=== PATIENT | female | born 2000 | race Caucasian/White ===

== ENCOUNTER 2022-06-18 11:44 | Emergency (ER) | payer BC, MEDICAID, SELFPAY ==
--- NOTE | 2022-06-18 12:08 | XR_ITS ---
WS: [id number] Left ankle, 3 views, 06/18/2022 Clinical Data: fall with ankle pain Comparison: None. Findings: No fractures or dislocations are seen. The ankle mortise is normal. The talus and calcaneus are unrem arkable. No soft tissue swelling over the medial or lateral malleolus is seen. XR/XR ankle LT min 3V* [id number] Impression: Negative left ankle.
[2022-06-18 12:09] VITALS: BMI 26.2
[2022-06-18 12:13] VITALS: BP 101/60; PULSE 70; RESP 18; TEMP 36.7; O2SAT 95
--- NOTE | 2022-06-18 12:18 | XR_ITS ---
WS: [id number] Left foot, 3 views, 06/18/2022 Clinical Data: left foot and ankle pain Comparison: None. Findings: No fractures or dislocations are seen. No bone destruction or erosion is noted. The joint spaces and soft tissues are normal. XR/XR foot LT 2V [id number] Impression: Negative left foot.
--- NOTE | 2022-06-18 14:32 | ED_ITS ---
HPI - Extremity Problem General: Chief complaint: Extremity Injury, Lower Stated complaint: Fall, left ankle pain. 15 weeks Time Seen by Provider: 06/18/22 14:08 History of Present Illness: Patient is a 21-year-old female that is currently 15 weeks who comes to the ED with left ankle and foot pain after fall. Patient states that she rolled her left ankle and fell approximately 8 days ago back on June 10. Denies any abdominal trauma, vaginal bleeding, abdominal pain or any related concerns. Her only complaint is left ankle and left foot pain. Pain worsens with some weightbearing. Associated symptoms: Deny chest pain, fever(s) or rash Review of Systems Const: Denies: fever(s), chills or fatigue Eyes: Denies: change in vision or eye discomfort ENMT: Denies: throat pain, odynophagia, nasal discharge or nasal congestion Card: Denies: chest pain, palpitations, edema, swelling of feet/ankles, dyspnea on exertion or orthopnea Resp: Denies: dyspnea, productive cough or non-productive cough GI: Denies: abdominal pain, nausea, vomiting, diarrhea, constipation or hematochezia : Denies: flank pain, dysuria, hematuria, vaginal bleeding or vaginal discharge Musc: Reports: extremity pain (Left ankle and left foot); Denies: neck pain, back pain or extremity swelling Skin/Breast: Denies: rash or new lesions Neuro: Denies: headache(s), numbness in extremities or weakness in extremities PFS ED PFSH: Medical History No pertinent family history Psychiatric care Surgical History No pertinent past surgical history Female Reproductive History: Date of last menstrual period: 03/01/22 Physical Exam Const: COMMON NORMALS: no acute distress, patient oriented x3 and alert GENERAL APPEARANCE: cooperative HENMT: COMMON NORMALS: normocephalic HEAD & SCALP: normocephalic MOUTH: Normal oral and palatal mucosa present THROAT: posterior oropharynx normal and uvula midline Neck/C-Spine: COMMON NORMALS: supple GENERAL: Yes normal visual inspection Resp: COMMON NORMALS: normal respiratory effort, No retractions, No use of accessory muscles and clear to auscultation bilaterally AUSCULTATION: clear to auscultation bilaterally Cardio: COMMON NORMALS: regular rate, regular rhythm, S1 normal heart sound present, S2 normal heart sound present, No gallops present (Cardio), No clicks present (Cardio), No murmurs present (Cardio) and Peripheral pulses 2+ throughout RATE: regular rate RHYTHM: regular rhythm HEART SOUNDS: S1 normal heart sound present and S2 normal heart sound present PERIPHERAL PULSES: Peripheral pulses 2+ throughout GI: COMMON NORMALS: Normal to inspection, nondistended, normoactive bowel sounds present, Soft to palpation, non-tender and no masses PALPATION: Yes Soft to palpation : COMMON NORMALS: Yes no CVA tenderness BLADDER/KIDNEY EXAM: Yes no CVA tenderness Back/Pelvis: COMMON NORMALS: no CVA tenderness Extremity: COMMON NORMALS: normal to inspection and full ROM NARRATIVE EXTREMITY EXAM: Patient's left ankle and foot is unremarkable on exam. No swelling or ecchymosis noted. Full range of motion. Able to ambulate without any limp. Neuro: COMMON NORMALS: patient oriented x3 SENSORIUM/ORIENTATION: Yes alert GAIT: Yes Normal gait present Skin: GENERAL SKIN EXAM: dry skin Course ED course: Nurse performed Doppler heart tone check and picked up heart rate of 145 bpm. Vital Signs: Vital signs: Vital Signs Temperature 98.1 F 06/18/22 12:13 Pulse Rate 70 06/18/22 12:13 Respiratory Rate 18 06/18/22 12:13 Blood Pressure 101/60 06/18/22 12:13 Pulse Oximetry 95 06/18/22 12:13 Oxygen Delivery Me thod 06/18/22 12:13 MDM - Extremity (Nontraumatic) Medical Decision Making Patient is a currently 15 weeks 21-year-old female comes to the ED with left ankle and left foot pain after fall 8 days ago. Denies any abdominal t rauma, vaginal bleeding or discharge or any concerns about . Exam of patient is benign and her left ankle and foot appears completely normal upon exam. She has full range of motion and able to ambulate on leg without any limping nurse performed Doppler heart tone check and picked up heart rate of 145 bpm. Left ankle and left foot x-ray showed no acute findings. Patient diagnosed with a sprain strain of ankle and was stable for discharge home. Told to rest, ice and elevate left ankle and to take [id number] Tylenol for pain. Follow-up with PCP within the next week for reevaluation. Patient understood and agreed with plan Lab Data Radiology Impressions Ankle X-Ray 06/18/22 12:08 Impression: Negative left ankle. Foot X-Ray 06/18/22 12:18 Impression: Negative left foot. Discharge Plan Discharge Patient Disposition: Home Clinical Impression: Sprain and strain of ankle Condition: Stable Discharge Orders: Discharge ED (Routine); Ordered 06/18/22 Ordered By: Ibrahima Davis Referrals: Mel Agustin DO [Primary Care Provider] - Discharge Diet: Regular Discharge Activity: Increase activity as tolerated Patient Instructions: Ankle Sprain (DC) Activity Restrictions/Additional Instructions: Follow-up with medical provider as directed in the next 5 to 7 days reevaluation. Rest, ice and elevate left ankle. Take [id number] Tylenol for pain. Return to the ER or your medical provider if condition worsens. Please read and understand discharge instructions. Thank you for choosing [facility] for your healthcare needs today. Please realize this is an emergency room and that we are providing you with a medical screening exam and this may not be complete and all inclusive of all the testing and or work up that you may need to determine your ailment or severity of your illness. It is very important that you follow up as instructed or that you return to the Emergency Department should you have concerns or if your condition changes or worsens in any way. Coding Level of Care Code ED Leather Repairer for Dana Horner Exam Comprehensive
== END 2022-06-18 14:54 | disposition home or self-care (01) ==
PROVIDERS: Emergency Provider Physician Assistant; PCP Family Medicine
DX: O99.891 Other specified diseases and conditions complicating pregnancy (principal); S93.402A Sprain of unspecified ligament of left ankle, initial encounter; S96.912A Strain of unspecified muscle and tendon at ankle and foot level, left foot, initial encounter; W19.XXXA Unspecified fall, initial encounter; Z3A.15 15 weeks gestation of pregnancy
CPT/HCPCS: 73610; 73620; 99283

== ENCOUNTER 2022-07-07 09:40 | Emergency (ER) | payer BC, MEDICAID, SELFPAY ==
[2022-07-07 10:02] VITALS: BP 114/72; PULSE 87; RESP 16; TEMP 36.6; O2SAT 98; BMI 26.2
--- NOTE | 2022-07-07 11:02 | W.ED.GENADLT ---
HPI - General Adult General: Chief complaint: General Medical Stated complaint: 18 wks, fetus not moving Time Seen by Provider: 07/07/22 11:02 History of Present Illness: Mr. Parsons is a 22-year-old lady currently approximately 18 weeks presenting to the emergency department due to decreased movements and abdominal cramping with vaginal discharge. She reports being on bedrest for the first trimester and was at work yesterday when she was told to lift and was more active. She has had near constant abdominal cramping worse in the suprapubic area. Additionally this morning she noticed increased watery vaginal discharge with pink tinge. She also notes decreased movements. Intensity symptoms is moderate. Course has persisted. No other specific changes in health, exacerbating, or alleviating factors identified. Onset (ago): day(s) Location: abdomen Radiation: non-radiation Severity: moderate Quality: other (cramping) Exacerbating factors: movement Associated symptoms: Reports other Review of Systems General: Reports: 10 or more systems reviewed and unremarkable except in HPI and below PFSH ED PFSH: Medical History No pertinent family history Psychiatric care Surgical History No pertinent past surgical history Female Reproductive History: Date of last menstrual period: 03/01/22 Physical Exam Const: COMMON NORMALS: alert GENERAL APPEARANCE: cooperative and well developed HENMT: COMMON NORMALS: normocephalic and atraumatic HEAD & SCALP: normocephalic and atraumatic Eye: COMMON NORMALS: conjunctivae normal CONJUNCTIVA: Yes conjunctivae normal SCLERA: sclerae normal Neck/C-Spine: COMMON NORMALS: supple GENERAL: Yes trachea midline Resp: COMMON NORMALS: normal respiratory effort EFFORT & INSPECTION: Yes able to speak in complete sentences Cardio: COMMON NORMALS: regular rate and regular rhythm RATE: regular rate RHYTHM: regular rhythm GI: COMMON NORMALS: Soft to palpation PALPATION: Yes Soft to palpation and Yes Tenderness to palpation present (GI) (mild lower) : OTHER: Pelvic exam performed with database programmer analyst present. Normal external exam. Mild to moderate amount of white discharge without other abnormality in the vaginal vault. Cervix appears closed. Bimanual exam with minimally worse tenderness on the right. Extremity: GENERAL: Yes normal exam except as noted and No edema Neuro: COMMON NORMALS: moves all extremities SENSORIUM/ORIENTATION: Yes alert and No Orientation impaired Psych: COMMON NORMALS: mental status grossly normal and Normal thought process present THOUGHT PROCESS: Normal thought process present Course Vital Signs: Vital signs: Vital Signs Temperature 97.8 F 07/07/22 10:02 Pulse Rate 87 07/07/22 10:02 Respiratory Rate 16 07/07/22 10:02 Blood Pressure 114/72 07/07/22 10:02 Pulse Oximetry 98 07/07/22 10:02 Oxygen Delivery Me thod 07/07/22 10:02 [facility] - General Adult Medical Decision Making 22-year-old female presenting with concern in the context of multiple prior SABs. Patient is nontoxic in appearance without significant abdominal tenderness. Urinalysis negative for infection. Wet prep negative. Given provided clinical history as well as symptoms and current gestational age I believe that ultrasound is reasonable. Ultrasound demonstrates single IUP with closed cervix, normal heart rate, anterior placenta location. Patient is improved after IV fluids. Most likely cause of patient symptoms is unclear, related concern. The results of ED evaluation were discussed with the patient including prescriptions and/or symptomatic cares (if applicable) including appropriate and responsible use, followup plan, and return precautions. The patient verbalized understanding and felt safe for discharge. Medical Records I reviewed the patient's medical records. Lab Data I reviewed the patient's lab results. Radiology Impressions Obstetrics Ultrasound 07/07/22 11:51 IMPRESSION: 1. Single interuterine gestation with breech presentation. 2. Closed cervix. 3. Examination within normal limits. Laboratory Results Urine Color Yellow (Yellow) 07/07/22 11:05 Urine Appearance Clear (CLEAR) 07/07/22 11:05 Urine pH 8 (5-7) H 07/07/22 11:05 Ur Specific Mcdowell 1.015 (1.005-1.030) 07/07/22 11:05 Urine Protein Neg (Negative) 07/07/22 11:05 Urine Glucose (UA) Norm (Normal) 07/07/22 11:05 Urine Ketones Negative (Negative) 07/07/22 11:05 Urine Blood Neg (Negative) 07/07/22 11:05 Urine Nitrate Negative (Negative) 07/07/22 11:05 Urine Bilirubin Neg (Negative) 07/07/22 11:05 Urine Urobilinogen Norm mg/dL (Negative) 07/07/22 11:05 Ur Leukocyte Esterase Negative (Negative) 07/07/22 11:05 Blood Type B Positive 07/07/22 12:15 Rho(D) Type Positive 07/07/22 12:15 Discharge Plan Discharge Patient Disposition: Home Clinical Impression: Abdominal cramping affecting , Vaginal discharge during Condition: Stable Prescriptions: No Action 28 mg iron- 800 mcg Tablet 1 tab PO DAILY Discharge Orders: Discharge ED (Routine); Ordered 07/07/22 Ordered By: Anshu Olsen Referrals: Mel Agustin DO [Primary Care Provider] - Discharge Diet: Usual diet Discharge Activity: Increase activity as tolerated Patient Instructions: Abdominal Pain in (ED), Vaginal Discharge (ED) Activity Restrictions/Additional Instructions: Thank you for visiting the emergency department. You were seen and evaluated for cramping and vaginal discharge during . The exact cause of her symptoms is unclear. No evidence of infection was found and ultrasound was normal at this time. Please follow-up with your director of oncology. Return to the emergency department for anything new that you are concerned about a feel needs emergency department evaluation. Stand Alone Forms: Work/School Release Coding Level of Care Code ED Dial Painter for Chg Fwd Exam Comprehensive
--- NOTE | 2022-07-07 11:14 | PC.NURSE ---
FHT 146
[2022-07-07 11:20] LABS: Add Urine Microscopic? NO; Charge for UA Resulting for Rev
[2022-07-07 11:24] LABS: Urine Appearance Clear (CLEAR); Urine Color Yellow (Yellow); pH Urine 8 (5-7)
[2022-07-07 11:25] LABS: Bilirubin Urine Neg (Negative); Blood Urine Neg (Negative); Glucose Urine UA Norm (Normal); Ketones Urine Negative (Negative); Leukocyte Esterase Urine Negative (Negative); Nitrate Urine Negative (Negative); Protein Urine Neg (Negative); Specific Gravity, Urine 1.015 (1.005-1.030); Urobilinogen Urine Norm (Negative)
--- NOTE | 2022-07-07 11:51 | US_ITS ---
WS: [id number] ULTRASOUND OB LIMITED TECHNIQUE: Limited ultrasound examination of the fetus. 0 CLINICAL INFORMATION: approx 18 wks preg, decreased movements, hx SABs x5 COMPARISON: July 30, 2021 FINDINGS: Closed cervix measures 3.5 cm Single interuterine gestation. presentation is breech Placental location is anterior. Placenta grade: 0. heart rate 147 BPM. Anatomy: BPD: 4.0 cm = 18 weeks 2 days HC: 15.4 cm = 18 weeks 3 days AC: 12.2 cm = 17 weeks 6 days FEMUR LENGTH: 2.7 cm = 18 weeks 2 days Estimated weight: 225 g., EGA by ultrasound: 18 weeks 2 days ZONIA by ultrasound: December 06, 2022 US/US OB limited [id number] IMPRESSION: 1. Single interuterine gestation with breech presentation. 2. Closed cervix. 3. Examination within normal limits.
[2022-07-07] MEDS: sodium chloride 0.9% 1,000 ML 999 ML IV (12:22)
== END 2022-07-07 14:50 | disposition home or self-care (01) ==
PROVIDERS: Physician Assistant; Emergency Provider Emergency Medicine; PCP Family Medicine
DX: O26.892 Other specified pregnancy related conditions, second trimester (principal); R10.9 Unspecified abdominal pain; N89.8 Other specified noninflammatory disorders of vagina; Z3A.18 18 weeks gestation of pregnancy
CPT/HCPCS: 36415; 76815; 81003; 86900; 87210; 87491; 87591; 96360; 96361; 99285; J7030

== ENCOUNTER 2022-07-25 14:20 | Outpatient (CLI) | payer BC, MEDICAID, SELFPAY ==
--- NOTE | 2022-07-25 14:32 | US_ITS ---
WS: [id number] OB ultrasound, 07/25/2022 Clinical Data: unable to obtain heart tones in office. Comparison: OB ultrasound, 07/22/2020 Findings: There is a single intrauterine in the vertex presentation. The placenta is Anterior and gra de 0. There is a normal amount of amnionic fluid. The heart rate is 138 beats per minute. The c ervix is 4.18 cm and closed. The estimated gestational age is 20 weeks 6 days with an ZONIA of approximately 12/06/2022. US/ OB limited [id number] Impression: 1. Single intrauterine in vertex presentation. 2. Estimated gestational age 20 weeks 6 days with an ZONIA of 12/06/2022. 3. heart rate 138 beats per minute.
[2022-07-25 14:40] VITALS: BP 109/71; PULSE 105
--- NOTE | 2022-07-25 14:50 | PC.NURSE ---
Ultrasound completed by the tech at this time. movement was visualized, placenta noted to be anterior, and FHT noted to be 138. Pt was reassured at this time and Shahida Gunn RN explained that sometimes with an anterior placenta it can be more difficult to feel the movements and find the heart tones with a Doppler, pt verbalized understanding.
== END 2022-07-25 14:55 | disposition home or self-care (01) ==
LOC: OPOB 14:26 → OBGYN 14:30
PROVIDERS: PCP Family Medicine; Visit Provider Family Medicine
DX: O26.892 Other specified pregnancy related conditions, second trimester (principal); Z3A.20 20 weeks gestation of pregnancy
CPT/HCPCS: 76815; 99211

== ENCOUNTER 2022-09-03 09:49 | Outpatient (CLI) | payer BC, MEDICAID, SELFPAY ==
[2022-09-03 10:07] VITALS: RESP 18
[2022-09-03 10:13] VITALS: BP 119/64; PULSE 95
[2022-09-03 10:31] VITALS: BP 118/64; PULSE 85
[2022-09-03 10:51] VITALS: BMI 30.7
== END 2022-09-03 10:50 | disposition home or self-care (01) ==
LOC: OPOB 09:57 → OBGYN 09:58
PROVIDERS: PCP Family Medicine; Visit Provider Family Medicine
DX: O36.8190 Decreased fetal movements, unspecified trimester, not applicable or unspecified (principal)
CPT/HCPCS: 99211

== ENCOUNTER 2022-09-17 20:52 | Outpatient (CLI) | payer BC, MEDICAID, SELFPAY ==
[2022-09-17] VITALS (9 sets, daily range): BP systolic 87–124; BP diastolic 56–67; PULSE 75–92; RESP 15; BMI 30.2
[2022-09-17 21:36] LABS: Basophils % 0.2 %; Eosinophils # 0.3 10^3/uL (0.0-0.8); Eosinophils % 2.1 %; Hematocrit 32.2 % (37.0-47.0); Hemoglobin 10.6 g/dL (11.5-15.3); Lymphocytes # 2.1 10^3/uL (0.8-4.8); Lymphocytes % 16.1 %; Mean Corpuscular HGB Conc 32.9 g/dL (30.0-36.0); Mean Corpuscular Hemoglobin 29.5 pg (28.0-34.0); Mean Corpuscular Volume 89.7 fl (81-99); Mean Platelet Volume 9.1 fL (7.4-10.4); Monocytes # 0.7 10^3/uL (0.2-0.9); Monocytes % 5.4 %; Neutrophils # 9.89 10^3/uL (1.8-7.7); Nucleated Red Blood Cells % 0 %; Platelet Count 242 10^3/cmm (130-400); Red Blood Count 3.59 10^6/uL (4.1-5.3); Red Cell Distribution Width 11.9 % (12.1-15.1); White Blood Count 13.2 10^3/uL (4.0-10.0)
[2022-09-17] MEDS: lactated ringers 1,000 ML 999 ML IV (21:43)
[2022-09-17 21:57] LABS: Alanine Aminotransferase < 5 U/L (0-33); Albumin Level 3.4 g/dL (3.5-5.2); Alkaline Phosphatase 85 U/L (35-105); Anion Gap 14.6 (5-19); Aspartate Amino Transferase 10 U/L (0-32); Blood Urea Nitrogen 6 mg/dL (6-20); Calcium 8.6 mg/dL (8.5-10.5); Carbon Dioxide 21 mmol/L (22-29); Chloride 103 mmol/L (98-107); Globulin 2.4 g/dL (1.3-4.6); Glomerular Filtration Rate 152.9 mL/min (90-130); Glucose 116 mg/dL (65-115); Osmolality Calculated 279 mOsm/kg (285-295); Potassium 3.6 mmol/L (3.5-5.1); Sodium 135 mmol/L (136-145); Total Bilirubin 0.2 mg/dL (0.15-1.2); Total Protein 5.8 g/dL (6.6-8.7); Uric Acid 3.1 mg/dL (2.4-5.7)
[2022-09-17 22:30] LABS: Urine Creatinine 106 mg/dL (28-217); Urine Protein Random 7 mg/dL
[2022-09-17 22:45] LABS: UPRO/UCREAT Ratio 0.07 mg/mg CR
[2022-09-17 22:49] LABS: Add Urine Culture? No; Add Urine Microscopic? YES; Amorphous Sediment Urine 2+ /hpf; Bacteria Urine 1+ /hpf; Bilirubin Urine Neg (Negative); Blood Urine Neg (Negative); Glucose Urine UA Norm (Normal); Ketones Urine Negative (Negative); Leukocyte Esterase Urine 2+ (Negative); Nitrate Urine Negative (Negative); Protein Urine Neg (Negative); RBC Urine 0-4 /hpf (0-2); Specific Gravity, Urine 1.015 (1.005-1.030); Squamous Epithelial Cell Urine TOO NUMEROUS TO CNT /hpf (0-5); Urine Appearance SL Hazy (CLEAR); Urine Color Yellow (Yellow); Urobilinogen Urine Norm (Negative); pH Urine 7 (5-7)
== END 2022-09-17 23:10 | disposition home or self-care (01) ==
LOC: OPOB 20:53 → OBGYN 20:53
PROVIDERS: PCP Family Medicine; Visit Provider Family Medicine
DX: O26.899 Other specified pregnancy related conditions, unspecified trimester (principal); Z3A.00 Weeks of gestation of pregnancy not specified; R51.9 Headache, unspecified; R60.0 Localized edema; R42 Dizziness and giddiness
CPT/HCPCS: 36415; 59025; 80053; 81001; 82570; 84156; 84550; 85025; 99211; J7120

== ENCOUNTER 2022-09-21 22:43 | Outpatient (CLI) | payer BC, MEDICAID, SELFPAY ==
[2022-09-21 22:46] VITALS: BMI 30.2
[2022-09-21 22:56] VITALS: BP 134/71; PULSE 110
[2022-09-21 23:23] VITALS: RESP 16; TEMP 36.6
[2022-09-22 00:33] VITALS: BP 120/59; PULSE 84
[2022-09-22 00:35] VITALS: BP 120/59; PULSE 84; RESP 16; TEMP 36.6
== END 2022-09-22 00:40 | disposition home or self-care (01) ==
LOC: OPOB 22:44 → OBGYN 09-22 00:30
PROVIDERS: PCP Family Medicine; Visit Provider Family Medicine
DX: O26.899 Other specified pregnancy related conditions, unspecified trimester (principal); Z3A.00 Weeks of gestation of pregnancy not specified; N89.8 Other specified noninflammatory disorders of vagina
CPT/HCPCS: 59025; 83986; 87210; 99211

== ENCOUNTER 2022-09-25 15:40 | Outpatient (CLI) | payer BC, MEDICAID, SELFPAY ==
[2022-09-25 15:40] VITALS: RESP 18; TEMP 36.6; BMI 30.6
[2022-09-25 15:49] VITALS: BP 109/66; PULSE 112
[2022-09-25 16:08] VITALS: BP 96/58; PULSE 100
== END 2022-09-25 16:30 | disposition home or self-care (01) ==
LOC: OPOB 15:41 → OBGYN 15:42
PROVIDERS: PCP Family Medicine; Visit Provider Family Medicine
DX: O26.899 Other specified pregnancy related conditions, unspecified trimester (principal); Z3A.00 Weeks of gestation of pregnancy not specified; M54.9 Dorsalgia, unspecified; R10.9 Unspecified abdominal pain
CPT/HCPCS: 99211

== ENCOUNTER 2022-10-01 16:10 | Outpatient (CLI) | payer BC, SELFPAY ==
[2022-09-25 16:21] VITALS: RESP 18
[2022-10-01 16:26] VITALS: BP 110/65; PULSE 93
[2022-10-01 16:30] VITALS: RESP 16
[2022-10-01 16:31] VITALS: BMI 30.7
[2022-10-01 16:41] VITALS: BP 117/61; PULSE 98
[2022-10-01 16:56] VITALS: BP 119/61; PULSE 93
[2022-10-01 17:07] LABS: Actim Prom Negative
[2022-10-01 17:11] VITALS: BP 119/73; PULSE 94
[2022-10-01 17:11] LABS: Bilirubin Urine Neg (Negative); Blood Urine Neg (Negative); Glucose Urine UA Norm (Normal); Ketones Urine Negative (Negative); Leukocyte Esterase Urine Negative (Negative); Nitrate Urine Negative (Negative); Protein Urine Neg (Negative); Specific Gravity, Urine 1.015 (1.005-1.030); Squamous Epithelial Cell Urine 25-40 /hpf (0-5); Sulfosalicylic Acid Urine Negative (Negative); Urine Appearance Cloudy (CLEAR); Urine Color Yellow (Yellow); Urobilinogen Urine Neg (Negative); pH Urine 8 (5-7)
[2022-10-01 17:12] LABS: Add Urine Culture? No
== END 2022-10-01 17:30 | disposition home or self-care (01) ==
LOC: OPOB 16:16 → OBGYN 16:16
PROVIDERS: PCP Family Medicine; Visit Provider Family Medicine
DX: O26.899 Other specified pregnancy related conditions, unspecified trimester (principal); Z3A.00 Weeks of gestation of pregnancy not specified; N89.8 Other specified noninflammatory disorders of vagina; R10.9 Unspecified abdominal pain
CPT/HCPCS: 59025; 81001; 84112; 99211

== ENCOUNTER 2022-10-09 09:48 | Outpatient (CLI) | payer BC, SELFPAY ==
[2022-10-09 09:56] VITALS: BP 128/65; PULSE 94
[2022-10-09 10:12] VITALS: BMI 31.2
--- NOTE | 2022-10-09 10:31 | US_ITS ---
WS: [id number] BIOPHYSICAL PROFILE AMNIOTIC FLUID HISTORY: NO MOVEMENT COMPARISON: 07/25/2022 position: Cephalic Cardiac activity: 138 bpm. Cervix: closed. Placenta: Anterior, no previa or abruption. Placenta grade: 1 Parameters are as follows: Breathin Movement: 2 Tone: 2 Fluid volume: 2 Amniotic Fluid Index: 15.5 cm; single deep vertical pocket 4.7 cm. US/US OB BPP wo NST [id number] IMPRESSION: 1. Biophysical profile score: 8/8. 2. Normal cardiac activity. 3. Normal amniotic fluid.
[2022-10-09 11:04] VITALS: BP 111/57; PULSE 88
[2022-10-09 11:07] LABS: Alanine Aminotransferase < 5 U/L (0-33); Albumin Level 3.1 g/dL (3.5-5.2); Alkaline Phosphatase 107 U/L (35-105); Anion Gap 12.7 (5-19); Aspartate Amino Transferase 11 U/L (0-32); Blood Urea Nitrogen 4 mg/dL (6-20); Calcium 8.7 mg/dL (8.5-10.5); Carbon Dioxide 23 mmol/L (22-29); Chloride 103 mmol/L (98-107); Globulin 2.9 g/dL (1.3-4.6); Glomerular Filtration Rate 152.9 mL/min (90-130); Glucose 134 mg/dL (65-115); Osmolality Calculated 279 mOsm/kg (285-295); Potassium 3.7 mmol/L (3.5-5.1); Sodium 135 mmol/L (136-145); Total Bilirubin 0.2 mg/dL (0.15-1.2)
[2022-10-09 11:30] VITALS: BP 106/51; PULSE 83
[2022-10-09 11:35] VITALS: BP 111/59; PULSE 94
[2022-10-09 11:49] VITALS: BP 105/63; PULSE 90
[2022-10-09 12:04] VITALS: BP 105/63; PULSE 90
[2022-10-14 19:34] LABS: Chenodeoxycholic Acid 0.6 umol/L (< OR = 3.9); Cholic Acid 0.9 umol/L (< OR = 2.8); Deoxycholic Acid <0.5 umol/L (< OR = 2.3); Total Bile Acids <1.5 umol/L (< OR = 8.3)
== END 2022-10-09 12:00 | disposition home or self-care (01) ==
LOC: OPOB 09:48 → OBGYN 09:49
PROVIDERS: PCP Family Medicine; Visit Provider Family Medicine
DX: O36.8190 Decreased fetal movements, unspecified trimester, not applicable or unspecified (principal); Z3A.00 Weeks of gestation of pregnancy not specified
CPT/HCPCS: 36415; 59025; 76819; 80053; 82542; 99211

== ENCOUNTER 2022-10-17 08:46 | Outpatient (CLI) | payer BC, SELFPAY ==
[2022-10-17 08:51] VITALS: BMI 31.4
[2022-10-17 08:57] VITALS: BP 131/69; PULSE 101
[2022-10-17 09:13] VITALS: BP 124/68; PULSE 94
[2022-10-17 09:20] LABS: Nitrazine Paper, PH Negative
== END 2022-10-17 09:20 | disposition home or self-care (01) ==
LOC: OPOB 08:47 → OBGYN 08:47
PROVIDERS: Family Medicine; PCP Family Medicine; Visit Provider Family Medicine
DX: O26.899 Other specified pregnancy related conditions, unspecified trimester (principal); N89.8 Other specified noninflammatory disorders of vagina; Z3A.00 Weeks of gestation of pregnancy not specified
CPT/HCPCS: 59025; 83986; 99211

== ENCOUNTER 2022-10-24 13:29 | Outpatient (CLI) | payer BC, SELFPAY ==
[2022-10-24] VITALS (8 sets, daily range): BP systolic 90–127; BP diastolic 54–76; PULSE 101–127; TEMP 36.2
== END 2022-10-24 15:33 | disposition home or self-care (01) ==
LOC: OPOB 13:29 → OBGYN 13:30
PROVIDERS: PCP Family Medicine; Visit Provider Family Medicine
DX: O26.899 Other specified pregnancy related conditions, unspecified trimester (principal); Z3A.00 Weeks of gestation of pregnancy not specified; Z91.81 History of falling
CPT/HCPCS: 59025; 99211

== ENCOUNTER 2022-10-27 12:19 | Outpatient (CLI) | payer BC, SELFPAY ==
[2022-10-27] VITALS (12 sets, daily range): BP systolic 90–127; BP diastolic 51–69; PULSE 80–110; TEMP 36.1; BMI 32.8
[2022-10-27 14:05] LABS: Basophils % 0.2 %; Eosinophils # 0.2 10^3/uL (0.0-0.8); Eosinophils % 1.6 %; Hematocrit 35.7 % (37.0-47.0); Hemoglobin 11.8 g/dL (11.5-15.3); Lymphocytes # 1.6 10^3/uL (0.8-4.8); Lymphocytes % 12.8 %; Mean Corpuscular HGB Conc 33.1 g/dL (30.0-36.0); Mean Corpuscular Hemoglobin 29.4 pg (28.0-34.0); Mean Platelet Volume 9.6 fL (7.4-10.4); Monocytes # 0.7 10^3/uL (0.2-0.9); Monocytes % 5.4 %; Neutrophils # 9.54 10^3/uL (1.8-7.7); Nucleated Red Blood Cells % 0 %; Platelet Count 238 10^3/cmm (130-400); Red Blood Count 4.01 10^6/uL (4.1-5.3); Red Cell Distribution Width 12.6 % (12.1-15.1); White Blood Count 12.1 10^3/uL (4.0-10.0)
[2022-10-27 14:32] LABS: Alanine Aminotransferase 6 U/L (0-33); Albumin Level 3.6 g/dL (3.5-5.2); Alkaline Phosphatase 170 U/L (35-105); Anion Gap 15.3 (5-19); Aspartate Amino Transferase 20 U/L (0-32); Blood Urea Nitrogen 4 mg/dL (6-20); Calcium 8.9 mg/dL (8.5-10.5); Carbon Dioxide 24 mmol/L (22-29); Chloride 104 mmol/L (98-107); Globulin 3.2 g/dL (1.3-4.6); Glomerular Filtration Rate 152.9 mL/min (90-130); Glucose 92 mg/dL (65-115); Osmolality Calculated 285 mOsm/kg (285-295); Potassium 4.3 mmol/L (3.5-5.1); Sodium 139 mmol/L (136-145); Total Bilirubin 0.3 mg/dL (0.15-1.2); Total Protein 6.8 g/dL (6.6-8.7); Uric Acid 3.6 mg/dL (2.4-5.7)
[2022-10-27 14:33] LABS: Add Urine Microscopic? YES; Bilirubin Urine Neg (Negative); Blood Urine Neg (Negative); Glucose Urine UA Norm (Normal); Ketones Urine 1+ (Negative); Leukocyte Esterase Urine 2+ (Negative); Nitrate Urine Negative (Negative); Protein Urine Neg (Negative); RBC Urine 0-4 /hpf (0-2); Specific Gravity, Urine 1.005 (1.005-1.030); Sulfosalicylic Acid Urine Negative (Negative); Urine Appearance Cloudy (CLEAR); Urine Color Light yellow (Yellow); Urine Creatinine 74 mg/dL (28-217); Urine Protein Random 7 mg/dL; Urobilinogen Urine Neg (Negative); WBC Urine 0-4 /hpf (0-5); pH Urine 8 (5-7)
[2022-10-27 14:34] LABS: Add Urine Culture? No; Amorphous Sediment Urine 2+ /hpf; Bacteria Urine 2+ /hpf; Squamous Epithelial Cell Urine 15-25 /hpf (0-5)
[2022-10-27 14:36] LABS: UPRO/UCREAT Ratio 0.09 mg/mg CR
== END 2022-10-27 15:35 | disposition home or self-care (01) ==
LOC: OPOB 12:25 → OBGYN 12:26
PROVIDERS: PCP Family Medicine; Visit Provider Family Medicine
DX: O26.899 Other specified pregnancy related conditions, unspecified trimester (principal); Z3A.00 Weeks of gestation of pregnancy not specified; R07.81 Pleurodynia
CPT/HCPCS: 36415; 59025; 80053; 81001; 82570; 84156; 84550; 85025; 99211

== ENCOUNTER 2022-10-31 19:57 | Outpatient (CLI) | payer BC, SELFPAY ==
[2022-10-31] VITALS (7 sets, daily range): BP systolic 127–136; BP diastolic 75–79; PULSE 102–125; TEMP 36.8–42.1; O2SAT 97; BMI 32.5
== END 2022-10-31 20:53 | disposition home or self-care (01) ==
LOC: OPOB 19:57 → OBGYN 19:59
PROVIDERS: PCP Family Medicine; Visit Provider Family Medicine
DX: O26.899 Other specified pregnancy related conditions, unspecified trimester (principal); Z3A.00 Weeks of gestation of pregnancy not specified; R10.9 Unspecified abdominal pain
CPT/HCPCS: 59025; 99211

== ENCOUNTER 2022-11-05 11:23 | Outpatient (CLI) | payer BC, SELFPAY ==
[2022-11-05 11:20] VITALS: BMI 33.1
[2022-11-05 11:34] VITALS: BP 129/68; PULSE 111
[2022-11-05 11:54] VITALS: BP 107/57; PULSE 96
[2022-11-05 12:25] VITALS: BP 107/57; PULSE 96; RESP 17
== END 2022-11-05 12:25 | disposition home or self-care (01) ==
LOC: OPOB 11:26 → OBGYN 11:26
PROVIDERS: PCP Family Medicine; Visit Provider Family Medicine
DX: O26.899 Other specified pregnancy related conditions, unspecified trimester (principal); Z3A.00 Weeks of gestation of pregnancy not specified; R11.0 Nausea; R60.0 Localized edema
CPT/HCPCS: 59025; 99211

== ENCOUNTER 2022-11-12 11:26 | Outpatient (CLI) | payer BC, MEDICAID, SELFPAY ==
[2022-11-12] VITALS (10 sets, daily range): BP systolic 100–133; BP diastolic 57–75; PULSE 95–115; RESP 16–18; BMI 32.5
--- NOTE | 2022-11-12 12:22 | US_ITS ---
WS: [id number] BIOPHYSICAL PROFILE AMNIOTIC FLUID HISTORY: Non-reactive NST, absent movement. COMPARISON: 2022 position: Vertex. Cardiac activity: 150 bpm. Cervix: Not well visualized. Obscured by the head. Placenta: Anterior, no previa or abruption. Placenta grade: 2 Parameters are as follows: Breathin Movement: 2 Tone: 2 Fluid volume: 2 Amniotic Fluid Index: 14.9 cm; single deep vertical pocket 6.4 cm. US/US OB BPP wo NST [id number] IMPRESSION: 1. Biophysical profile score: 8/8. 2. Normal amniotic fluid.
== END 2022-11-12 13:55 | disposition home or self-care (01) ==
LOC: OPOB 11:31 → OBGYN 11:33
PROVIDERS: PCP Family Medicine; Visit Provider Family Medicine
DX: O36.8190 Decreased fetal movements, unspecified trimester, not applicable or unspecified (principal); Z3A.00 Weeks of gestation of pregnancy not specified
CPT/HCPCS: 59025; 76819; 99211

== ENCOUNTER 2022-11-13 10:10 | Outpatient (CLI) | payer BC, MEDICAID, SELFPAY ==
[2022-11-13 10:18] VITALS: BMI 33.1
[2022-11-13 10:20] VITALS: BP 124/74; PULSE 121
[2022-11-13 10:36] VITALS: BP 120/73; PULSE 99
== END 2022-11-13 10:47 | disposition home or self-care (01) ==
LOC: OPOB 10:10 → OBGYN 10:13
PROVIDERS: PCP Family Medicine; Visit Provider Family Medicine
DX: O26.899 Other specified pregnancy related conditions, unspecified trimester (principal); Z3A.00 Weeks of gestation of pregnancy not specified
CPT/HCPCS: 59025; 99211

== ENCOUNTER 2022-11-14 13:30 | Outpatient (CLI) | payer BC, MEDICAID, SELFPAY ==
[2022-11-14 13:42] VITALS: BP 114/72; PULSE 115
[2022-11-14 13:45] VITALS: BMI 33.5
[2022-11-14 14:33] LABS: Nitrazine Paper, PH Negative
[2022-11-14 14:42] VITALS: BP 124/73; PULSE 105
== END 2022-11-14 14:46 | disposition home or self-care (01) ==
LOC: OPOB 13:35 → OBGYN 13:36
PROVIDERS: PCP Family Medicine; Visit Provider Family Medicine
DX: O26.899 Other specified pregnancy related conditions, unspecified trimester (principal); N89.8 Other specified noninflammatory disorders of vagina; Z3A.00 Weeks of gestation of pregnancy not specified
CPT/HCPCS: 59025; 83986; 99211

== ENCOUNTER 2022-11-27 09:02 | Outpatient (CLI) | payer BC, SELFPAY ==
[2022-11-27 09:00] VITALS: BMI 33.1
[2022-11-27 09:11] VITALS: BP 119/69; PULSE 97
[2022-11-27 09:31] VITALS: BP 116/67; PULSE 105
[2022-11-27 09:34] LABS: Nitrazine Paper, PH Negative
[2022-11-27 09:51] VITALS: BP 109/72; PULSE 96
[2022-11-27 10:05] LABS: Actim Prom Negative
[2022-11-27 10:12] VITALS: BP 123/74; PULSE 92
[2022-11-27 10:20] VITALS: BP 123/74; PULSE 92
== END 2022-11-27 10:20 | disposition home or self-care (01) ==
LOC: OPOB 09:03 → OBGYN 09:03
PROVIDERS: PCP Family Medicine; Visit Provider Family Medicine
DX: O36.8190 Decreased fetal movements, unspecified trimester, not applicable or unspecified (principal); O60.00 Preterm labor without delivery, unspecified trimester; Z3A.00 Weeks of gestation of pregnancy not specified
CPT/HCPCS: 59025; 83986; 84112; 99211

== ENCOUNTER 2022-11-30 19:57 | Inpatient (IN) | payer BC, MEDICAID, SELFPAY ==
[2022-11-30 19:16] VITALS: BMI 33.1
[2022-11-30 19:57] VITALS: TEMP 36.3
[2022-11-30 20:07] LABS: Basophils % 0.2 %; Eosinophils # 0.2 10^3/uL (0.0-0.8); Eosinophils % 1.4 %; Hematocrit 37.7 % (37.0-47.0); Lymphocytes # 1.9 10^3/uL (0.8-4.8); Lymphocytes % 15.2 %; Mean Corpuscular HGB Conc 31.8 g/dL (30.0-36.0); Mean Corpuscular Hemoglobin 28.1 pg (28.0-34.0); Mean Corpuscular Volume 88.3 fl (81-99); Mean Platelet Volume 9.8 fL (7.4-10.4); Monocytes # 0.7 10^3/uL (0.2-0.9); Monocytes % 5.8 %; Neutrophils # 9.44 10^3/uL (1.8-7.7); Neutrophils % 76.8 %; Nucleated Red Blood Cells % 0 %; Platelet Count 252 10^3/cmm (130-400); Red Blood Count 4.27 10^6/uL (4.1-5.3); Red Cell Distribution Width 13.6 % (12.1-15.1); White Blood Count 12.3 10^3/uL (4.0-10.0)
[2022-11-30] MEDS: miSOPROStol 100 mcg tablet 25 MCG VAGINAL (20:31)
[2022-11-30] MEDS: lactated ringers 1,000 ML 999 ML IV (21:20)
[2022-12-01] VITALS (24 sets, daily range): BP systolic 108–159; BP diastolic 46–90; PULSE 85–125; RESP 16–18; TEMP 36.4–36.7; O2SAT 97–99
[2022-12-01] MEDS: miSOPROStol 100 mcg tablet 25 MCG VAGINAL (02:01)
[2022-12-01] MEDS: fentaNYL 50 mcg/mL INJ 2mL IVP ×2 (04:35→06:51)
--- NOTE | 2022-12-01 07:25 | PM.OBGYHP ---
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 Patient has not had any significant complications during her . The patient had frequent visits to labor and delivery due to pain and decreased movement. However, valuation was unremarkable. Initial OB labs were unremarkable. The patient was GBS negative. Patient was started on Cytotec and entered into the good contraction pattern after 2 doses with thinning and increased dilation of the cervix. Patient change from 2 cm to 4 cm and is approximately 90% effaced. Patient has no new concerns today. Present Details : 5 Para: 0 Review of Systems General: Reports: 10 or more systems reviewed and unremarkable except in HPI and below Medications/Allergies Home Medications Medication Instructions Recorded Confirmed Last Taken Type vit no.95-ferrous 2 tab PO DAILY 08/20/22 11/19/22 11/13/22 22:00 History fumarate 28 mg-folic acid 800 mcg tablet () buspirone 5 mg tablet 5 mg PO TID #90 tabs 11/19/22 11/19/22 Unknown Rx fluoxetine 20 mg capsule (Prozac) 20 mg PO DAILY #30 caps 11/19/22 11/19/22 Unknown Rx lamotrigine 100 mg tablet 100 mg PO BID #60 tabs 11/19/22 11/19/22 Unknown Rx Allergies Allergy/AdvReac Type Severity Reaction Status Date / Time tramadol AdvReac Intermediate Unknown Verified 11/19/22 15:56 PFSH EXTENDED DAY TEACHER PFSH: Medical History No pertinent family history Psychiatric care Surgical History No pertinent past surgical history History History History 5 Term Miscarriages/Ectopic Living Children 0 Vitals/I&O/Wt Last Vital Signs Temp 97.6 F 12/01/22 01:31 Resp 18 12/01/22 06:51 O2 Del Method Room Air 12/01/22 01:31 11/30/22 12/01/22 12/01/22 22:59 06:59 14:59 Intake Total 499.5 / 499.5 500.5 / 1000.0 Balance 499.5 / 499.5 500.5 / 1000.0 Weight last 48 hrs Weight 87.543 kg Physical Exam Const: COMMON NORMALS: no acute distress, healthy appearing and alert HENMT: COMMON NORMALS: normocephalic and moist oral mucous membranes Neck/C-Spine: COMMON NORMALS: no lymphadenopathy and supple Resp: COMMON NORMALS: normal respiratory effort and No retractions Cardio: COMMON NORMALS: regular rate and regular rhythm GI: OTHER: Gravid Extremity: COMMON NORMALS: no clubbing, cyanosis or edema Neuro: COMMON NORMALS: moves all extremities, no focal motor deficits and no sensory deficits noted Psych: COMMON NORMALS: mental status grossly normal and normal affect Skin: GENERAL SKIN EXAM: no rashes or lesions noted Data 11/30/22 19:31 A&P Assessment and plan (1) Term : We will add Pitocin to augment labor. Continue with routine labor management. Attestations Medical Necessity Statement*: Admitted for induction of labor and anticipate 2 midnight stay Coding Level of Care Code Acute Code for Chg Fwd Diagnoses Term Z34.90
[2022-12-01] MEDS: dextrose 5%-lactated ringers 1,000 ML 125 ML IV (08:36)
--- NOTE | 2022-12-01 12:40 | PM.OPHPUD ---
Labor & Delivery H&P Update Date of Procedure: December 01, 2022 Date H&P Performed: 12/01/22 Changes to previous documentation: The patient has progressed to 5 cm dilation with the 100% effacement. However, contractions are starting to space out and we will increase the frequency of Pitocin moderate dose. Plan to proceed with artificial rupture of membranes at this time. Discussed risk and benefits. Admission Diagnosis: Planned procedure: AROM - Procedure: The membranes were ruptured with amnio hook without complication. Small to moderate amount of fluid was noted that appeared to be meconium stained. Patient tolerated the procedure well and there were no complications.
[2022-12-01] MEDS: lactated ringers 1,000 ML 999 ML IV (12:55)
--- NOTE | 2022-12-01 14:31 | P.PCNOB_ITS ---
Delivery Note: Date of delivery: December 01, 2022 Post-delivery diagnoses: Term Procedure: Spontaneous vaginal delivery Delivering Physician: Shay Quintero MD Estimated blood loss (mL): 400 Findings: Viable female Pre-Delivery Course: The patient presented for induction of labor using Cytotec. The patient was having contractions this morning, however there were not adequate to make cervical change so Pitocin was used to augment labor. Patient progressed to 5 cm and then artificial rupture of membranes was performed and she quickly dilated to 10 cm. Delivery: After the patient was deemed to be complete the patient started pushing with contractions. The patient was able to progress slowly onto delivery of a viable female. heart tones were dropping with contractions but recovered quickly, however oxygen was given to help. After delivery of a viable infant female placenta was delivered without incident. The perineum showed a small sec ond-degree and bilateral labial tear. This was repaired with 3-0 Vicryl. At the end of the procedure uterus was firm to palpation and bleeding was controlled. Post-Delivery Status: Stable History History History 5 Term Miscarriages/Ectopic Living Children 1 A&P Assessment and plan (1) Vaginal delivery: Proceed with routine care. Coding Level of Care Code Acute Code for Chg Fwd Diagnoses Vaginal delivery O80
[2022-12-01] MEDS: ibuprofen 800 mg tablet PO ×2 (17:07→21:15)
[2022-12-01] MEDS: docusate sodium 100 mg Capsule PO (17:07)
[2022-12-01] MEDS: lidocaine 2% INJ 20 mL INJECTION (17:09)
[2022-12-01] MEDS: benzocaine-menthol 78 gm Canister 1 SPRAY TOPICAL (18:42)
[2022-12-01] MEDS: lanolin oint 7 gm 1 APPLIC TOPICAL (18:42)
[2022-12-01] MEDS: HYDROcodone-acetaminophen 5-325 mg Tablet PO (23:25)
[2022-12-02 02:28] LABS: Hematocrit 31.7 % (37.0-47.0); Hemoglobin 10.3 g/dL (11.5-15.3); Mean Corpuscular HGB Conc 32.5 g/dL (30.0-36.0); Mean Corpuscular Hemoglobin 28.5 pg (28.0-34.0); Mean Corpuscular Volume 87.8 fl (81-99); Mean Platelet Volume 9.8 fL (7.4-10.4); Platelet Count 237 10^3/cmm (130-400); Red Blood Count 3.61 10^6/uL (4.1-5.3); Red Cell Distribution Width 13.7 % (12.1-15.1); White Blood Count 14.9 10^3/uL (4.0-10.0)
[2022-12-02 05:40] VITALS: BP 100/55; PULSE 79; RESP 16; TEMP 36.6; O2SAT 98
[2022-12-02] MEDS: HYDROcodone-acetaminophen 5-325 mg Tablet PO ×2 (05:49→09:02)
--- NOTE | 2022-12-02 07:25 | P.DS_ITS ---
Discharge Providers GLIDING PILOT INSTRUCTOR Date of Admission: 11/30/22 19:57 Date of Discharge: 12/02/22 Attending Provider at Admission: Remy Quintero MD Attending Provider at Discharge: Remy Quintero MD Primary Care Provider: Remy Quintero MD Diagnoses at Discharge Discharge Diagnosis (1) Vaginal delivery: Status: Acute Reason for Visit Reason for Visit: IOL Brief History: This is a 22-year-old G5, P1 that presented at 39 weeks 1 day for induction of labor. Hospital Course Hospital Course The patient initially started with Cytotec for induction of labor and cervical ripening. Patient was started on Pitocin for labor augmentation and progressed to 5 cm. Artificial rupture of membranes was performed at that time and she quickly progressed to complete. Then delivered a viable female vaginally without complications. She did have a small second-degree tear that was repaired. care was unremarkable. Information Peripartum Data: Delivery Method: Vaginal Laceration description: Perineal - 2nd Degree complications: none Physical Exam Const: COMMON NORMALS: no acute distress, healthy appearing and alert HENMT: COMMON NORMALS: normocephalic and moist oral mucous membranes HEAD & SCALP: normocephalic Neck/C-Spine: COMMON NORMALS: no lymphadenopathy and supple Resp: COMMON NORMALS: normal respiratory effort and No retractions Cardio: COMMON NORMALS: regular rate and regular rhythm RATE: regular rate RHYTHM: regular rhythm GI: COMMON NORMALS: Normal to inspection, nondistended, normoactive bowel sounds present Extremity: COMMON NORMALS: no clubbing, cyanosis or edema Neuro: COMMON NORMALS: moves all extremities, no focal motor deficits and no sensory deficits noted SENSORIUM/ORIENTATION: Yes alert Psych: COMMON NORMALS: mental status grossly normal and normal affect Skin: COMMON NORMALS: no rashes or lesions noted GENERAL SKIN EXAM: no rashes or lesions noted History History History 5 Term Miscarriages/Ectopic Living Children 1 Discharge Data Studies Completed and Pending Laboratory Results WBC 14.9 10^3/uL (4.0-10.0) H 12/02/22 02:14 RBC 3.61 10^6/uL (4.1-5.3) L 12/02/22 02:14 Hgb 10.3 g/dL (11.5-15.3) L 12/02/22 02:14 Hct 31.7 % (37.0-47.0) L 12/02/22 02:14 MCV 87.8 fl (81-99) 12/02/22 02:14 MCH 28.5 pg (28.0-34.0) 12/02/22 02:14 MCHC 32.5 g/dL (30.0-36.0) 12/02/22 02:14 RDW 13.7 % (12.1-15.1) 12/02/22 02:14 Plt Count 237 10^3/cmm (130-400) 12/02/22 02:14 MPV 9.8 fL (7.4-10.4) 12/02/22 02:14 Neut % (Auto) 76.8 % 11/30/22 19:31 Lymph % (Auto) 15.2 % 11/30/22 19:31 [place] % (Auto) 5.8 % 11/30/22 19: Eos % (Auto) 1.4 % 11/30/22 19: Baso % (Auto) 0.2 % 11/30/22 19: Neut # (Auto) 9.44 10^3/uL (1.8-7.7) H 11/30/22 19:31 Lymph # (Auto) 1.9 10^3/uL (0.8-4.8) 11/30/22 19: [place] # (Auto) 0.7 10^3/uL (0.2-0.9) 11/30/22 19: Eos # (Auto) 0.2 10^3/uL (0.0-0.8) 11/30/22 19: Baso # (Auto) 0.0 10^3/uL (0.0-0.1) 11/30/22 19: Nucleated RBC % (auto) 0 % 11/30/22 19: Nucleated RBCs # 0.0 /100WBC 11/30/22 19:31 Vitals Last Vital Signs Temp 97.8 F 12/02/22 05:40 Pulse 79 12/02/22 05:40 Resp 16 12/02/22 05:40 BP 100/55 12/02/22 05:40 Pulse Ox 98 12/02/22 05:40 O2 Del Method Room Air 12/02/22 05:40 Discharge Plan Discharge Patient Disposition: Home Condition: Stable Prescriptions: Continued buspirone 5 mg tablet 5 mg PO TID Qty: 90 2RF fluoxetine [Prozac] 20 mg capsule 20 mg PO DAILY Qty: 30 2RF lamotrigine 100 mg tablet 100 mg PO BID Qty: 60 2RF 28 mg iron- 800 mcg tablet 2 tab PO DAILY Discharge Orders: Discharge Order (Routine); Ordered 12/02/22 Ordered By: Remy Quintero Discharge Diet: Usual diet Discharge Activity: Limit activity as instructed Patient Instructions: Opioid Safety Discharge Attestations GLIDING PILOT INSTRUCTOR Time Spent in Discharge Care*: less than 30 min Coding Level of Care Code Acute Code for Chg Fwd Diagnoses Vaginal delivery O80
[2022-12-02] MEDS: docusate sodium 100 mg Capsule PO (09:02)
[2022-12-02 09:05] VITALS: BP 119/63; PULSE 80; RESP 17
[2022-12-02 16:00] VITALS: BP 114/66; PULSE 88; RESP 18; TEMP 37.1; O2SAT 96
[2022-12-02 16:35] VITALS: BP 114/66; PULSE 88; RESP 18; TEMP 37.1; O2SAT 96
== END 2022-12-02 16:35 | disposition home or self-care (01) | DRG 807 ==
LOC: OPOB 12-01 12:07 → OBGYN 12-01 19:38
PROVIDERS: Admitting Provider Family Medicine; PCP Family Medicine; Visit Provider Family Medicine
DX: O70.1 Second degree perineal laceration during delivery (principal); Z37.0 Single live birth; Z3A.39 39 weeks gestation of pregnancy
CPT/HCPCS: 36415; 59025; 59409; 85025; 85027; 96374; 96376; 98960; J3010; J7040; J7120; J7121

== ENCOUNTER 2023-08-06 10:28 | Emergency (ER) | payer MEDICAID, SELFPAY ==
[2023-08-06 10:37] VITALS: BP 97/63; PULSE 96; TEMP 36.9; O2SAT 96; BMI 28.3
--- NOTE | 2023-08-06 10:57 | USR_ITS ---
PROCEDURE INFORMATION: Exam: US First Trimester, Transabdominal Exam date and time: 08/06/2023 11:42 AM Age: 23 years old Clinical indication: Lmp or gestational age (in weeks): 7 weeks 2 days; Antepartum complications; Other: Cramping; ; Additional info: Threatened miscarriage LABS AND CLINICAL REPORTS: Last menstrual period start date: Unknown TECHNIQUE: Imaging protocol: Real-time transabdominal obstetrical ultrasound of the maternal pelvis and a first trimester , less than 14 weeks 0 days, with image documentation. COMPARISON: US OB BPP NST [id number] 11/12/2022 12:53 PM FINDINGS: GESTATION: Gestation: Single live intrauterine gestation. Morphologically normal gestational sac. Morphologically normal yolk sac and pole. Embryonic/ heart rate: 147 bpm Extra-embryonic membranes/Placenta: No visible subchorionic hemorrhage. Amniotic fluid: Normal for gestational age. BIOMETRY: Gestational age (AUA): 7 w 2 d Ixl-Rump length: 11.4 mm. EGA (CRL) is 7 w 2 d MATERNAL: Uterus: The uterus is anteverted. Uterine contours are normal. Cervix: Unremarkable. Right ovary/adnexa: The right ovary is morphologically normal. Right ovary measures 3.0 x 2.9 x 2.2 cm. Left ovary/adnexa: Left ovary is not obscured by bowel gas. Intraperitoneal space: No pelvic free fluid. US/US OB <= 14 weeks fetus [id number] IMPRESSION: Single live intrauterine of 7 weeks 2 days. No apparent complications.
[2023-08-06 11:10] LABS: Basophils % 0.4 %; Eosinophils # 0.2 10^3/uL (0.0-0.8); Eosinophils % 1.7 %; Hematocrit 40.1 % (36-47); Lymphocytes # 1.6 10^3/uL (0.8-4.8); Lymphocytes % 17.2 %; Mean Corpuscular HGB Conc 33.2 g/dL (30-55); Mean Corpuscular Hemoglobin 29.2 pg (27-33); Mean Corpuscular Volume 88.1 fl (85-98); Monocytes # 0.5 10^3/uL (0.2-0.9); Monocytes % 5.2 %; Neutrophils % 75.2 %; Nucleated Red Blood Cells % 0 %; Platelet Count 276 10^3/cmm (157-399); Red Blood Count 4.55 10^6/uL (3.85-5.65); White Blood Count 9.44 10^3/uL (3.29-11.43)
--- NOTE | 2023-08-06 11:12 | ED_ITS ---
HPI - Abdominal Pain 2 General: Chief Complaint: Abdominal Pain Stated Complaint: spotting, pt stated about 10 weeks Time Seen by Provider: 08/06/23 10:37 Source: patient Mode of arrival: ambulatory Limitations: no limitations History of Present Illness: 23-year-old female states she believes s he is roughly 7 to 8 weeks states she has had some lower abdominal cramping along with vaginal spotting the last 2 days. She had nausea as well she denies any severe pain denies passing any clots or any heavy bleeding. Denies any worsening proving factors. Associated Symptoms: Reports nausea; Denies chills, diarrhea, dysuria, fever(s) and vomiting Review of Systems 2 Const: Denies: fever(s) or chills Eyes: Denies: eye discomfort ENMT: Denies: throat pain or dental pain Card: Denies: chest pain Resp: Denies: dyspnea GI: Reports: abdominal pain and nausea; Denies: vomiting or diarrhea : Reports: vaginal bleeding; Denies: dysuria Musc: Denies: neck pain or back pain Skin/Breast: Denies: rash Neuro: Denies: headache(s) PFSH ED 2 PFSH: Medical History No pertinent family history Psychiatric care Surgical History No pertinent past surgical history Physical Exam 2 Const: COMMON NORMALS: no acute distress, patient oriented x3 and healthy appearing HENMT: COMMON NORMALS: normocephalic and atraumatic HEAD & SCALP: n ormocephalic and atraumatic Eye: COMMON NORMALS: conjunctivae normal CONJUNCTIVA: Yes conjunctivae normal Neck/C-Spine: COMMON NORMALS: full ROM and supple Chest: COMMONS NORMALS: normal inspection of the chest Resp: COMMON NORMALS: normal respiratory effort Cardio: COMMON NORMALS: regular rate, regular rhythm and No murmurs present (Cardio) RATE: regular rate RHYTHM: regular rhythm GI: COMMON NORMALS: Normal to inspection, nondistended, normoactive bowel sounds present, Soft to palpation, non-tender and no masses PALPATION: Yes Soft to palpation Extremity: COMMON NORMALS: normal to inspection and full ROM Neuro: COMMON NORMALS: patient oriented x3, moves all extremities and no focal motor deficits Psych: COMMON NORMALS: mental status grossly normal, Normal thought process present and cooperative THOUGHT PROCESS: Normal thought process present Skin: COMMON NORMALS: no rashes or lesions noted and no wounds GENERAL SKIN EXAM: no rashes or lesions noted Course 2 Vital Signs: Vital signs: Vital Signs Temperature 98.4 F 08/06/23 10:37 Pulse Rate 96 08/06/23 10:37 Blood Pressure 97/63 08/06/23 10:37 Pulse Oximetry 96 08/06/23 10:37 Oxygen Delivery Me thod Room Air 08/06/23 10:37 MDM - Abdominal Pain Medical Decision Making Patient presents here with threatened miscarriage her bleeding is minimal ultrasound here shows IUP consistent with dates she is stable for discharge she is to follow-up with PCP and return if worsening. Medical Records I reviewed the patient's medical records. Lab Data I reviewed the patient's lab results. 08/06/23 11:05 08/06/23 11:05 Labs/Radiology: Radiology Impressions Ultrasound 08/06/23 10:57 IMPRESSION: Single live intrauterine of 7 weeks 2 days. No apparent complications. Laboratory Results WBC 9.44 10^3/uL (3.29-11.43) 08/06/23 11:05 RBC 4.55 10^6/uL (3.85-5.65) 08/06/23 11:05 Hgb 13.30 g/dL (11.27-16.99) 08/06/23 11:05 Hct 40.1 % (36-47) 08/06/23 11:05 MCV 88.1 fl (85-98) 08/06/23 11:05 MCH 29.2 pg (27-33) 08/06/23 11:05 MCHC 33.2 g/dL (30-55) 08/06/23 11:05 RDW 13.0 % (12.1-15.1) 08/06/23 11:05 Plt Count 276 10^3/cmm (157-399) 08/06/23 11:05 MPV 9.0 fL (7.4-10.4) 08/06/23 11:05 Neut % (Auto) 75.2 % 08/06/23 11:05 Lymph % (Auto) 17.2 % 08/06/23 11:05 [place] % (Auto) 5.2 % 08/06/23 11:05 Eos % (Auto) 1.7 % 08/06/23 11:05 Baso % (Auto) 0.4 % 08/06/23 11:05 Neut # (Auto) 7.10 10^3/uL (1.8-7.7) 08/06/23 11:05 Lymph # (Auto) 1.6 10^3/uL (0.8-4.8) 08/06/23 11:05 [place] # (Auto) 0.5 10^3/uL (0.2-0.9) 08/06/23 11:05 Eos # (Auto) 0.2 10^3/uL (0.0-0.8) 08/06/23 11:05 Baso # (Auto) 0.0 10^3/uL (0.0-0.1) 08/06/23 11:05 Nucleated RBC % (auto) 0 % 08/06/23 11:05 Nucleated RBCs # 0.0 /100WBC 08/06/23 11:05 Sodium 137 mmol/L (136-145) 08/06/23 11:05 Potassium 3.7 mmol/L (3.5-5.1) 08/06/23 11:05 Chloride 104 mmol/L (98-107) 08/06/23 11:05 Carbon Dioxide 20 mmol/L (22-29) L 08/06/23 11:05 Anion Gap 16.7 (5-19) 08/06/23 11:05 BUN 8 mg/dL (6-20) 08/06/23 11:05 Creatinine 0.5 mg/dL (0.5-0.9) 08/06/23 11:05 GFR Calculation 151.6 mL/min (90-130) H 08/06/23 11:05 Glucose 96 mg/dL (65-115) 08/06/23 11:05 Calculated Osmolality 282 mOsm/kg (285-295) L 08/06/23 11:05 Calcium 8.9 mg/dL (8.5-10.5) 08/06/23 11:05 Total Bilirubin 0.3 mg/dL (0.15-1.2) 08/06/23 11:05 AST 12 U/L (0-32) 08/06/23 11:05 ALT 6 U/L (0-33) 08/06/23 11:05 Alkaline Phosphatase 85 U/L (35-105) 08/06/23 11:05 Total Protein 7.1 g/dL (6.6-8.7) 08/06/23 11:05 Albumin 4.0 g/dL (3.5-5.2) 08/06/23 11:05 Globulin 3.1 g/dL (1.3-4.6) 08/06/23 11:05 Lipase 22 U/L (13-60) 08/06/23 11:05 Ser , Semi-Qnt 749605.00 mIU/mL 08/06/23 11:05 Urine Color Yellow (Yellow) 08/06/23 11:27 Urine Appearance Hazy (CLEAR) A 08/06/23 11:27 Urine pH 7 (5-7) 08/06/23 11:27 Ur Specific [place] 1.010 (1.005-1.030) 08/06/23 11:27 Urine Protein Neg (Negative) 08/06/23 11:27 Urine Glucose (UA) Norm (Normal) 08/06/23 11:27 Urine Ketones Negative (Negative) 08/06/23 11:27 Urine Blood Neg (Negative) 08/06/23 11:27 Urine Nitrate Negative (Negative) 08/06/23 11:27 Urine Bilirubin Neg (Negative) 08/06/23 11:27 Urine Urobilinogen Neg mg/dL (Negative) 08/06/23 11:27 Ur Leukocyte Esterase 2+ (Negative) H 08/06/23 11:27 Urine RBC 0-4 /hpf (0-2) H 08/06/23 11:27 Urine WBC 5-10 /hpf (0-5) H 08/06/23 11:27 Ur Squamous Epith Cells 25-40 /hpf (0-5) H 08/06/23 11:27 Amorphous Sediment Not Reportable 08/06/23 11:27 Urine Bacteria 2+ /hpf (NONE) H 08/06/23 11:27 All radiology interpretation(s) finalized by discharge Discharge Plan Discharge Patient Disposition: Home Clinical Impression: Threatened miscarriage Condition: Stable Prescriptions: No Action 28 mg iron- 800 mcg tablet 2 tab PO DAILY Discharge Orders: Discharge ED (Routine); Ordered 08/06/23 Ordered By: Keeley Zaldivar Referrals: Mel Agustin DO [Primary Care Provider] - 1-3 days Discharge Diet: Advance as tolerated Discharge Activity: Resume usual activity Patient Instructions: Threatened Miscarriage (ED) Coding Level of Care Code ED Investor Relations Specialist for Dana Horner
[2023-08-06] MEDS: sodium chloride 0.9% 1,000 ML 999 ML IV (11:30)
[2023-08-06] MEDS: metoclopramide 5 mg/mL SDV 2 mL 10 MG IVP (11:30)
[2023-08-06] MEDS: diphenhydrAMINE 50 mg/mL SDV 1mL IVP (11:30)
[2023-08-06 11:34] LABS: Alanine Aminotransferase 6 U/L (0-33); Alkaline Phosphatase 85 U/L (35-105); Anion Gap 16.7 (5-19); Aspartate Amino Transferase 12 U/L (0-32); Blood Urea Nitrogen 8 mg/dL (6-20); Calcium 8.9 mg/dL (8.5-10.5); Carbon Dioxide 20 mmol/L (22-29); Chloride 104 mmol/L (98-107); Globulin 3.1 g/dL (1.3-4.6); Glomerular Filtration Rate 151.6 mL/min (90-130); Glucose 96 mg/dL (65-115); Lipase 22 U/L (13-60); Osmolality Calculated 282 mOsm/kg (285-295); Potassium 3.7 mmol/L (3.5-5.1); Sodium 137 mmol/L (136-145); Total Bilirubin 0.3 mg/dL (0.15-1.2); Total Protein 7.1 g/dL (6.6-8.7)
[2023-08-06 12:34] LABS: Add Urine Microscopic? YES; Bilirubin Urine Neg (Negative); Blood Urine Neg (Negative); Glucose Urine UA Norm (Normal); Ketones Urine Negative (Negative); Leukocyte Esterase Urine 2+ (Negative); Nitrate Urine Negative (Negative); Protein Urine Neg (Negative); RBC Urine 0-4 /hpf (0-2); Urine Appearance Hazy (CLEAR); Urine Color Yellow (Yellow); Urobilinogen Urine Neg (Negative); pH Urine 7 (5-7)
[2023-08-06 12:35] LABS: Add Urine Culture? No; Bacteria Urine 2+ /hpf; Squamous Epithelial Cell Urine 25-40 /hpf (0-5)
== END 2023-08-06 12:52 | disposition home or self-care (01) ==
PROVIDERS: Emergency Provider Emergency Medicine; PCP Family Medicine
DX: O20.0 Threatened abortion (principal); Z3A.01 Less than 8 weeks gestation of pregnancy
CPT/HCPCS: 36415; 76801; 80053; 81001; 83690; 84702; 85025; 96374; 96375; 99284; J1200; J2765; J7030

== ENCOUNTER 2023-08-18 11:23 | Outpatient (CLI) | payer MEDICAID, SELFPAY ==
--- NOTE | 2023-08-18 11:32 | US_ITS ---
WS: [id number] EARLY OBSTETRICAL ULTRASOUND (<14 WEEKS). HISTORY: SUPERVISION OF OTHER NORMAL ,FIRST TRIMESTER COMPARISON: 08/06/2023 Single intrauterine gestational sac is identified. Cardiac activity at [address] [place]-rump length mirian sures 2.5 cm which corresponds to a gestation of 9w2d. Normal-appearing yolk sac and amnion demonstra naila. Small subchorionic hemorrhage. Subchorionic hemorrhage measures 2.8 x 1.4 x 1.9 cm. No free fluid. Corpus luteal cyst associated with the RIGHT ovary measures 1.9 x 2.0 x 1.7 cm. IMPRESSION: 1. Single intrauterine gestation of 9 weeks 2 days with an EDC of 03/20/2024. 2. Normal cardiac activity. 3. Small subchorionic hemorrhage.
== END 2023-08-18 11:24 | disposition home or self-care (01) ==
LOC: RAD 11:24
PROVIDERS: PCP Family Medicine; Visit Provider Family Medicine
DX: Z34.91 Encounter for supervision of normal pregnancy, unspecified, first trimester (principal)
CPT/HCPCS: 76801; 76817

== ENCOUNTER 2023-09-21 15:24 | Emergency (ER) | payer MEDICAID, SELFPAY ==
[2023-09-21 15:58] VITALS: BP 115/74; PULSE 95; RESP 14; TEMP 36.8; O2SAT 95; BMI 28.9
--- NOTE | 2023-09-21 16:11 | W.ED.PREGNAN ---
HPI - General: Chief complaint: Abdominal Pain Stated complaint: cramping Time Seen by Provider: 09/21/23 15:30 Source: patient Mode of arrival: ambulatory Limitations: no limitations History of Present Illness: Patient is a 23-year-old female presents to ED today at approximately 14 to 15 weeks gestation for pelvic cramping that began earlier today. 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 She states on one of her miscarriages she miscarried around 16 weeks. She tells me I just want to make sure everything is okay . Patient has had adequate OB care. She follows with Dr. Agustin at [facility]. She is not having any bleeding or leaking of fluids. Denies vaginal discharge. Denies any new sexual partners or concern for STIs. She has not had any vomiting or diarrhea. No fevers. MD Complaint: other (pelvic cramping) Onset (ago): hour(s) Pain Consistency: intermittent Location: pelvis Severity: moderate Quality: Sharp Radiation: pelvis Relieving factors: none Exacerbating factors: none Vaginal discharge: none Vaginal bleeding: none Patient : Yes OB History - Current : no complications OB History - Previous Pregnancies: miscarriage care: followed by OB (Dr. Agustin at [facility]) Associated symptoms: Deny abdominal pain, dysuria, headache(s), malaise, nausea or vomiting Review of Systems Const: Denies: fever(s), chills, body aches, fatigue or malaise Card: Denies: chest pain Resp: Denies: dyspnea GI: Denies: abdominal pain, nausea, vomiting or diarrhea : Reports: pelvic pain (cramping); Denies: flank pain, difficulty voiding, dysuria, urinary frequency, urinary urgency or urinary hesitancy Musc: Denies: neck pain, back pain, extremity pain or joint pain Skin/Breast: Denies: rash Neuro: Denies: headache(s), numbness in extremities, weakness in extremities or sensory changes PFSH ED PFSH: Medical History No pertinent family history Psychiatric care Surgical History No pertinent past surgical history Physical Exam Const: COMMON NORMALS: no acute distress, average body habitus, patient oriented x3, no limitations, alert and well nourished Resp: COMMON NORMALS: normal respiratory effort and clear to auscultation bilaterally AUSCULTATION: clear to auscultation bilaterally Cardio: COMMON NORMALS: regular rate and regular rhythm RATE: regular rate RHYTHM: regular rhythm GI: COMMON NORMALS: Normal to inspection, nondistended, normoactive bowel sounds present, Soft to palpation, No hepatosplenomegaly present and no masses INSPECTION: Yes normal to inspection AUSCULTATION: Yes normoactive bowel sounds PALPATION: Yes Soft to palpation, Yes Tenderness to palpation present (GI) (lower abdomen/pelvis), No Guarding due to palpation present (GI), No Rigid due to palpation and Yes No hepatosplenomegaly present : COMMON NORMALS: Yes no CVA tenderness BLADDER/KIDNEY EXAM: Yes no CVA tenderness Back/Pelvis: COMMON NORMALS: no CVA tenderness Extremity: GENERAL: Yes normal exam except as noted Neuro: COMMON NORMALS: patient oriented x3 SENSORIUM/ORIENTATION: Yes alert Skin: COMMON NORMALS: no rashes or lesions noted GENERAL SKIN EXAM: no rashes or lesions noted Course Vital Signs: Vital signs: Vital Signs Temperature 98.3 F 09/21/23 15:58 Pulse Rate 95 09/21/23 15:58 Respiratory Rate 14 09/21/23 15:58 Blood Pressure 115/74 09/21/23 15:58 Pulse Oximetry 95 09/21/23 15:58 Oxygen Delivery Me thod Room Air 09/21/23 15:58 MDM - OB/Uterine Contractions Medical Decision Making Patient had an ultrasound here on 08/18 showing a live intrauterine . heart tones were appreciated on today's visit at 159. Patient is not having any vaginal bleeding. She arrives with stable vital signs. There is no need for emergent ultrasound imaging today. She is B+ blood type. UA was obtained and is hazy in appearance with 2+ leuks, 10-15 WBCs, and 2+ bacteria. Somewhat contaminated. Will go ahead and place her on antibiotics and attempt culture. She has an appointment with her OB provider tomorrow. Medical Records I reviewed the patient's medical records. Lab Data I reviewed the patient's lab results. Laboratory Results Urine Color Straw (Yellow) 09/21/23 16:26 Urine Appearance Hazy (CLEAR) A 09/21/23 16:26 Urine pH 7 (5-7) 09/21/23 16:26 Ur Specific [place] 1.015 (1.005-1.030) 09/21/23 16:26 Urine Protein Neg (Negative) 09/21/23 16:26 Urine Glucose (UA) Norm (Normal) 09/21/23 16:26 Urine Ketones Negative (Negative) 09/21/23 16:26 Urine Blood Neg (Negative) 09/21/23 16:26 Urine Nitrate Negative (Negative) 09/21/23 16:26 Urine Bilirubin Neg (Negative) 09/21/23 16:26 Urine Urobilinogen Norm mg/dL (Negative) 09/21/23 16:26 Ur Leukocyte Esterase 2+ (Negative) H 09/21/23 16:26 Urine RBC None /hpf (0-2) 09/21/23 16:26 Urine WBC 10-15 /hpf (0-5) H 09/21/23 16:26 Ur Squamous Epith Cells 10-15 /hpf (0-5) H 09/21/23 16:26 Amorphous Sediment 2+ /hpf 09/21/23 16:26 Urine Bacteria 2+ /hpf (NONE) H 09/21/23 16:26 No radiology studies performed this visit Discharge Plan Discharge Patient Disposition: Home Clinical Impression: Urinary tract infection during Qualifiers: Trimester: second trimester Qualified Code(s): O23.42 - Unspecified infection of urinary tract in , second trimester Condition: Stable Prescriptions: New amoxicillin-pot clavulanate 875-125 mg tablet 1 tab PO BID Qty: 14 0RF No Action 28 mg iron- 800 mcg tablet 2 tab PO QPM Discharge Orders: Discharge ED (Routine); Ordered 09/21/23 Ordered By: Jie Bird Referrals: Mel Agustin DO [Primary Care Provider] - Patient Instructions: Urinary Tract Infection in (ED) Activity Restrictions/Additional Instructions: As we discussed your urine today looks suspicious for urinary tract infection. We will go ahead and culture this. We will place you on antibiotics. Please follow-up with your OB provider tomorrow as scheduled. As we discussed we did do heart tones today which were present at 159. Coding Level of Care Code ED Airplane Flight Attendant for Dana Horner
[2023-09-21 16:43] LABS: Urine Appearance Hazy (CLEAR); Urine Color Straw (Yellow)
[2023-09-21 16:44] LABS: Add Urine Microscopic? YES; Bacteria Urine 2+ /hpf; Bilirubin Urine Neg (Negative); Blood Urine Neg (Negative); Glucose Urine UA Norm (Normal); Ketones Urine Negative (Negative); Leukocyte Esterase Urine 2+ (Negative); Nitrate Urine Negative (Negative); Protein Urine Neg (Negative); Specific Gravity, Urine 1.015 (1.005-1.030); Urobilinogen Urine Norm (Negative); pH Urine 7 (5-7)
[2023-09-21 16:45] LABS: Add Urine Culture? No; Amorphous Sediment Urine 2+ /hpf
== END 2023-09-21 17:03 | disposition home or self-care (01) ==
PROVIDERS: Emergency Provider Physician Assistant; PCP Family Medicine
DX: O23.42 Unspecified infection of urinary tract in pregnancy, second trimester (principal); N39.0 Urinary tract infection, site not specified; Z3A.14 14 weeks gestation of pregnancy
CPT/HCPCS: 81001; 87086; 99283

== ENCOUNTER 2023-10-27 08:52 | Outpatient (CLI) | payer MEDICAID, SELFPAY ==
--- NOTE | 2023-10-27 08:57 | USR_ITS ---
PROCEDURE INFORMATION: Exam: US After First Trimester, Transabdominal Exam date and time: 10/27/2023 9:04 AM Age: 23 years old Clinical indication: Screening exam; Routine US, uterus; Additional info: Anatomy check/2nd trimester/htn LABS AND CLINICAL REPORTS: Estimated due date (Established): 03/19/2024 TECHNIQUE: Imaging protocol: Real-time transabdominal obstetrical ultrasound of the maternal pelvis and a second or third trimester with image documentation. COMPARISON: US OB <=14 wk fetus w transvag 08/18/2023 11:54 AM FINDINGS: Gestation: Single live intrauterine gestation. heart rate: 147 bpm presentation: Cephalic presentation. Placenta: Unremarkable. No subchorionic bleed. Placenta is anterior. Amniotic fluid: Amniotic fluid is normal for gestational age. Amniotic fluid index: ESTELITA is 13.94 cm. ANATOMY: midline falx: Normal cerebellum: Normal lateral ventricles: Normal cisterna magna: Normal choroid plexus: Normal upper lip and nose: Normal heart four-chamber view, heart size and position: Normal right ventricular outflow tract: Normal left ventricular outflow tract: Normal kidneys: Normal stomach: Normal urinary bladder: Normal spine: Normal Umbilical cord insertion site into the abdomen: Normal Umbilical cord vessel number: Normal three-vessel cord extremities: Normal external genitalia: Obscured BIOMETRY: Gestational age (AUA): 19 weeks 1 day Estimated due date (AUA): 03/21/2024 Estimated weight: Not calculated Biparietal diameter (BPD): 4.5 cm. EGA (BPD) is 19 w 4 d. 58.1 % percentile Head circumference (HC): 17.15 cm. EGA (HC) is 19 w 5 d. 57.5 % percentile Abdominal circumference (AC): Not measured Femur length (FL): 2.98 cm. EGA (FL) is 19 w 1 d. 34.1 % percentile Cephalic Index (CI): 76.01. (Normal range: 70 - 86) FL/HC: 17.38. (Normal range: 16.2 - 18.51) FL/BPD: 66.22 MATERNAL: Uterus: Unremarkable. Cervix: Cervical length measures 3 cm. Right ovary/adnexa: Obscured by lack of adequate acoustic window. Left ovary/adnexa: Obscured by lack of adequate acoustic window. Intraperitoneal space: No intraperitoneal free fluid. US/US OB >= 14 weeks fetus [id number] IMPRESSION: Single viable intrauterine gestation with estimated gestational age of 19 weeks 1 day.
== END 2023-10-27 08:53 | disposition home or self-care (01) ==
LOC: RAD 08:53
PROVIDERS: PCP Family Medicine; Visit Provider Family Medicine
DX: Z34.82 Encounter for supervision of other normal pregnancy, second trimester (principal); Z86.79 Personal history of other diseases of the circulatory system
CPT/HCPCS: 76805

== ENCOUNTER 2023-11-30 10:59 | Outpatient (CLI) | payer MEDICAID, SELFPAY ==
[2023-11-30 11:00] VITALS: BMI 31.1
[2023-11-30 11:16] VITALS: BP 122/66; PULSE 92
[2023-11-30 11:36] VITALS: BP 108/61; PULSE 86
== END 2023-11-30 11:40 | disposition home or self-care (01) ==
LOC: OPOB 11:04 → OBGYN 11:05
PROVIDERS: PCP Family Medicine; Visit Provider Family Medicine
DX: O36.8190 Decreased fetal movements, unspecified trimester, not applicable or unspecified (principal); Z3A.00 Weeks of gestation of pregnancy not specified
CPT/HCPCS: 99211

== ENCOUNTER 2023-12-19 12:44 | Outpatient (CLI) | payer MEDICAID, SELFPAY ==
[2023-12-19 12:54] VITALS: BP 116/80; PULSE 104
[2023-12-19 13:49] VITALS: BMI 31.1
== END 2023-12-19 13:30 | disposition home or self-care (01) ==
LOC: OPOB 12:45 → OBGYN 12:46
PROVIDERS: PCP Family Medicine; Visit Provider Family Medicine
DX: O36.8190 Decreased fetal movements, unspecified trimester, not applicable or unspecified (principal); Z3A.00 Weeks of gestation of pregnancy not specified
CPT/HCPCS: 99211

== ENCOUNTER 2023-12-23 10:37 | Outpatient (CLI) | payer MEDICAID, SELFPAY ==
[2023-12-23 10:53] VITALS: BP 150/62; PULSE 106
[2023-12-23 10:56] VITALS: BMI 31.8
[2023-12-23 10:59] VITALS: RESP 16
[2023-12-23 11:08] VITALS: BP 114/59; PULSE 97
== END 2023-12-23 11:20 | disposition home or self-care (01) ==
LOC: OPOB 10:44 → OBGYN 10:44
PROVIDERS: PCP Family Medicine; Visit Provider Family Medicine
DX: O26.899 Other specified pregnancy related conditions, unspecified trimester (principal); Z3A.00 Weeks of gestation of pregnancy not specified; R10.9 Unspecified abdominal pain
CPT/HCPCS: 99211

== ENCOUNTER 2024-02-07 11:35 | Outpatient (CLI) | payer MEDICAID, SELFPAY ==
[2024-02-07] VITALS (19 sets, daily range): BP systolic 101–118; BP diastolic 54–67; PULSE 86–109; O2SAT 96–100; BMI 32.4
[2024-02-07] MEDS: lactated ringers 1,000 ML 999 ML IV (12:48)
[2024-02-07] MEDS: betamethasone susp 6 mg/mL 1 mL (per mL) 12 MG IM (12:49)
[2024-02-07] MEDS: terbutaline 1 mg/mL INJ 0.25 MG SUBCUT (12:49)
== END 2024-02-07 14:15 | disposition home or self-care (01) ==
LOC: OPOB 11:37 → OBGYN 11:38
PROVIDERS: PCP Family Medicine; Visit Provider Family Medicine
DX: O26.899 Other specified pregnancy related conditions, unspecified trimester (principal); Z3A.00 Weeks of gestation of pregnancy not specified; R10.2 Pelvic and perineal pain
CPT/HCPCS: 87081; 96372; J0702; J3105; J7120

== ENCOUNTER 2024-02-08 08:40 | Outpatient (CLI) | payer MEDICAID, SELFPAY ==
[2024-02-08 08:50] VITALS: BP 109/63; PULSE 117
[2024-02-08 09:02] VITALS: BMI 32.3
[2024-02-08] MEDS: NIFEdipine ER (24 hr) 30 mg Tablet PO (10:05)
[2024-02-08 10:28] VITALS: BP 112/66; PULSE 100
[2024-02-08] MEDS: betamethasone susp 6 mg/mL 1 mL (per mL) 12 MG IM (10:28)
== END 2024-02-08 10:40 | disposition home or self-care (01) ==
LOC: OPOB 08:42 → OBGYN 08:43
PROVIDERS: PCP Family Medicine; Visit Provider Family Medicine
DX: O26.899 Other specified pregnancy related conditions, unspecified trimester (principal); Z3A.00 Weeks of gestation of pregnancy not specified; R10.9 Unspecified abdominal pain
CPT/HCPCS: 59025; 96372; 99211; J0702

== ENCOUNTER 2024-02-20 11:07 | Outpatient (CLI) | payer MEDICAID, SELFPAY ==
[2024-02-20 11:27] VITALS: BP 127/73; PULSE 111
[2024-02-20 11:36] VITALS: BMI 32.4
[2024-02-20 11:45] VITALS: BP 131/72; PULSE 110
[2024-02-20 12:01] VITALS: BP 128/58; PULSE 108
[2024-02-20 12:15] VITALS: BP 116/59; PULSE 103
[2024-02-20 12:30] VITALS: BP 122/63; PULSE 104
[2024-02-20 12:40] VITALS: BP 122/63; PULSE 104
== END 2024-02-20 12:40 | disposition home or self-care (01) ==
LOC: OPOB 11:10 → OBGYN 11:11
PROVIDERS: Visit Provider Family Medicine
DX: O26.899 Other specified pregnancy related conditions, unspecified trimester (principal); Z3A.00 Weeks of gestation of pregnancy not specified; R10.9 Unspecified abdominal pain
CPT/HCPCS: 59025; 99211

== ENCOUNTER 2024-02-20 17:43 | Outpatient (CLI) | payer MEDICAID, SELFPAY ==
[2024-02-20 17:43] VITALS: BMI 32.4
[2024-02-20 18:09] VITALS: BP 102/59; PULSE 99
[2024-02-20 18:25] VITALS: BP 113/62; PULSE 97
[2024-02-20 19:19] LABS: Nitrazine Paper, PH Negative
== END 2024-02-20 18:30 | disposition home or self-care (01) ==
LOC: OPOB 17:43 → OBGYN 17:44
PROVIDERS: Visit Provider Family Medicine
DX: O26.899 Other specified pregnancy related conditions, unspecified trimester (principal); Z3A.00 Weeks of gestation of pregnancy not specified; N89.8 Other specified noninflammatory disorders of vagina
CPT/HCPCS: 59025; 83986; 99211

== ENCOUNTER 2024-03-14 01:04 | Outpatient (CLI) | payer MEDICAID, SELFPAY ==
[2024-03-14 01:00] VITALS: RESP 16; TEMP 36.7; BMI 33.7
[2024-03-14 01:12] VITALS: BP 128/72; PULSE 99
[2024-03-14 01:30] VITALS: BP 122/69; PULSE 88
[2024-03-14 01:49] LABS: Nitrazine Paper, PH Negative
[2024-03-14 02:00] VITALS: BP 122/69; PULSE 88; RESP 16; TEMP 36.7
== END 2024-03-14 02:05 | disposition home or self-care (01) ==
LOC: OPOB 01:04 → OBGYN 01:05
PROVIDERS: Visit Provider Family Medicine
DX: O26.899 Other specified pregnancy related conditions, unspecified trimester (principal); Z3A.00 Weeks of gestation of pregnancy not specified; N89.8 Other specified noninflammatory disorders of vagina
CPT/HCPCS: 59025; 83986; 99211

== ENCOUNTER 2024-03-21 06:08 | Inpatient (IN) | payer MEDICARE, SELFPAY ==
[2024-03-21] VITALS (24 sets, daily range): BP systolic 104–139; BP diastolic 60–87; PULSE 77–103; RESP 16–20; TEMP 36.7; O2SAT 97; BMI 34.1
[2024-03-21 06:55] LABS: Basophils % 0.3 %; Eosinophils # 0.1 10^3/uL (0.0-0.8); Eosinophils % 1.2 %; Hematocrit 34.8 % (36-47); Lymphocytes # 2.1 10^3/uL (0.8-4.8); Mean Corpuscular HGB Conc 31.3 g/dL (30-55); Mean Corpuscular Hemoglobin 24.9 pg (27-33); Mean Corpuscular Volume 79.6 fl (85-98); Mean Platelet Volume 10.1 fL (7.4-10.4); Monocytes # 0.8 10^3/uL (0.2-0.9); Monocytes % 6.3 %; Neutrophils # 8.75 10^3/uL (1.8-7.7); Neutrophils % 73.5 %; Nucleated Red Blood Cells % 0 %; Platelet Count 227 10^3/cmm (157-399); Red Blood Count 4.37 10^6/uL (3.85-5.65); Red Cell Distribution Width 14.1 % (12.1-15.1); White Blood Count 11.89 10^3/uL (3.29-11.43)
--- NOTE | 2024-03-21 07:33 | P.HP_ITS ---
Providers/Chief Complaint 2 Admitting Physician: Remy Quintero MD Chief Complaint: IOL HPI CLINICAL SOCIOLOGIST History of Present Illness Padmini Parsons is a 23 year old G6, P1 female at 40 weeks and 2 days here for induction of labor. Patient has had intermittent contractions but overall nothing consistent. The patient has dilated to approximately 4 cm at arrival today. The patient's care has been fairly unremarkable. The patient did not pass her 1 hour glucose test and refused her 3-hour glucose tolerance test. Measurements have been appropriate throughout . Measurements have been normal and there have been no other concerns during her . Present Details : 6 Para: 1 L&D/Induction Specific History Indication for induction OB: post dates Review of Systems 2 General: Reports: 10 or more systems reviewed and unremarkable except in HPI and below Medications/Allergies Home Medications Medication Instructions Recorded Confirmed Last Taken Type vit no.95-ferrous 2 tab PO QPM 08/20/22 03/21/24 03/20/24 History fumarate 28 mg-folic acid 800 mcg tablet () Allergies Allergy/AdvReac Type Severity Reaction Status Date / Time latex Allergy ALGY-Rash Verified 03/21/24 06:24 tramadol AdvReac Intermediate ADR-Headach Verified 03/21/24 06:24 e PFSH CLINICAL SOCIOLOGIST 2 PFSH: Medical History (Updated 11/23/23 @ 11:13 by Brynn Hughes) No pertinent family history Surgical History No pertinent past surgical history History History History 2 5 Term Miscarriages/Ectopic Living Children 1 Vitals/I&O/Wt Last Vital Signs Pulse 90 03/21/24 05:55 BP 118/64 03/21/24 05:55 O2 Del Method Room Air 03/21/24 06:16 Weight last 48 hrs Weight 92.986 kg Weight 92.986 kg Physical Exam 2 Const: COMMON NORMALS: no acute distress, healthy appearing and alert HENMT: COMMON NORMALS: normocephalic and moist oral mucous membranes HEAD & SCALP: normocephalic Neck/C-Spine: COMMON NORMALS: no lymphadenopathy and supple Resp: COMMON NORMALS: normal respiratory effort and No retractions Cardio: COMMON NORMALS: regular rate and regular rhythm RATE: regular rate RHYTHM: regular rhythm GI: OTHER: Gravid uterus Extremity: COMMON NORMALS: no clubbing, cyanosis or edema Neuro: COMMON NORMALS: moves all extremities, no focal motor deficits and no sensory deficits noted SENSORIUM/ORIENTATION: Yes alert Psych: COMMON NORMALS: mental status grossly normal and normal affect Skin: COMMON NORMALS: no rashes or lesions noted GENERAL SKIN EXAM: no rashes or lesions noted Data 03/21/24 06:08 Results Labs OB ([facility]): 2 Obstetrics US 08/18/23 Obstetrics US/Biophysical Profile Blood Type B Positive 07/07/22 Antibody Screen Pending 03/21/24 Hct 34.8 % (36-47) L 03/21/24 Hgb 10.90 g/dL (11.27-16.99) L 03/21/24 Rho(D) Type Positive 07/07/22 Plt Count 227 10^3/cmm (157-399) 03/21/24 Uric Acid 3.6 mg/dL (2.4-5.7) 10/27/22 Ser , Semi-Qnt 215109.00 mIU/mL 08/06/23 Micro Urine Specimen 09/21/23 A&P Assessment and plan (1) Term : Patient initially had refused Pitocin and Cytotec as an appropriate due to her vasodilation. This was discussed with the patient and the patient finally agreed to start induction. Will we will plan to start Pitocin and perform artificial rupture membranes. Otherwise, routine labor management. Attestations 2 Medical Necessity Statement*: Patient is admitted for induction of labor. Anticipate at least 1 midnight stay. Coding Level of Care Code Acute Code for Chg Fwd Diagnoses Term Z34.90
[2024-03-21] MEDS: oxytocin 30 UNIT/500 ML BAG IV (07:45)
[2024-03-21] MEDS: dextrose 5%-lactated ringers 1,000 ML 125 ML IV (07:45)
[2024-03-21] MEDS: fentaNYL 50 mcg/mL INJ 2mL IVP ×3 (09:28→12:00)
[2024-03-21] MEDS: lactated ringers 1,000 ML 999 ML IV (10:55)
[2024-03-21] MEDS: lidocaine 2% INJ 20 mL INJECTION (12:01)
--- NOTE | 2024-03-21 12:15 | PM.DELIVERY ---
Delivery Note: Date of delivery: March 21, 2024 Pre-delivery diagnoses: Term intrauterine , meconium Post-delivery diagnoses: Same as above, viable infant female Procedure: Otitis vaginal delivery Delivering Physician: Dr. Shay Quintero Estimated blood loss (mL): 200 Pre-Delivery Course: Patient presented this morning for induction of labor. The patient was induced by starting Pitocin and performing artificial rupture membranes. Patient had progressed as expected to completion after that. Delivery: Patient was completely dilated the patient was placed into the normal lithotomy position. The patient started pushing with contractions and delivered a viable infant female vaginally without any significant complications. There was a nuchal cord x 1 that was reduced prior to delivery of the body. Center was then delivered soon after. The perineum did show a small second-degree tear that was repaired with 2-0 Vicryl. At the end of the procedure bleeding was controlled and uterus was firm. History History History 5 Term Miscarriages/Ectopic Living Children 1 A&P Assessment and plan (1) Vaginal delivery: Proceed with routine post care. Coding Level of Care Code Acute Code for Chg Fwd Diagnoses Vaginal delivery O80
[2024-03-21] MEDS: ibuprofen 800 mg tablet PO ×2 (15:23→20:17)
[2024-03-21] MEDS: benzocaine-menthol 78 gm Canister 1 SPRAY TOPICAL (15:23)
[2024-03-21] MEDS: lanolin oint 7 gm 1 APPLIC TOPICAL (15:23)
[2024-03-21] MEDS: docusate sodium 100 mg Capsule PO (20:17)
[2024-03-21 21:49] LABS: Glucose Point of Care 60 mg/dL (70-110)
[2024-03-22 01:12] LABS: Hematocrit 32.7 % (36-47); Mean Corpuscular HGB Conc 31.5 g/dL (30-55); Mean Corpuscular Hemoglobin 24.8 pg (27-33); Mean Corpuscular Volume 78.8 fl (85-98); Mean Platelet Volume 10.5 fL (7.4-10.4); Platelet Count 194 10^3/cmm (157-399); Red Blood Count 4.15 10^6/uL (3.85-5.65); Red Cell Distribution Width 14.1 % (12.1-15.1); White Blood Count 14.38 10^3/uL (3.29-11.43)
[2024-03-22 04:26] VITALS: BP 116/66; PULSE 77; RESP 16; TEMP 36.7; O2SAT 98
--- NOTE | 2024-03-22 07:12 | P.DS_ITS ---
Discharge Providers [employer] Date of Admission: 03/21/24 06:08 Date of Discharge: 03/22/24 Attending Provider at Admission: Remy Quintero MD Attending Provider at Discharge: Remy Quintero MD Diagnoses at Discharge Discharge Diagnosis (1) Vaginal delivery: Status: Acute Reason for Visit Reason for Visit: IOL Hospital Course Hospital Course This is a 23-year-old G6, P2 that presented for induction of labor. Patient delivered a viable infant female vaginally at 40 weeks 2 days without difficulty. There has been no complications. Patient's bleeding is appropriate. Pain has been managed and there have been no fevers. Information Peripartum Data: Delivery Method: Vaginal complications: none Physical Exam Const: COMMON NORMALS: no acute distress, healthy appearing and alert HENMT: COMMON NORMALS: normocephalic and moist oral mucous membranes HEAD & SCALP: normocephalic Neck/C-Spine: COMMON NORMALS: no lymphadenopathy and supple Resp: COMMON NORMALS: normal respiratory effort and No retractions Cardio: COMMON NORMALS: regular rate and regular rhythm RATE: regular rate RHYTHM: regular rhythm GI: OTHER: Uterus firm and below umbilicus Extremity: COMMON NORMALS: no clubbing, cyanosis or edema Neuro: COMMON NORMALS: moves all extremities, no focal motor deficits and no sensory deficits noted SENSORIUM/ORIENTATION: Yes alert Psych: COMMON NORMALS: mental status grossly normal and normal affect Skin: COMMON NORMALS: no rashes or lesions noted GENERAL SKIN EXAM: no rashes or lesions noted History History History 5 Term Miscarriages/Ectopic Living Children 1 Discharge Data Studies Completed and Pending Laboratory Results WBC 14.38 10^3/uL (3.29-11.43) H 03/22/24 00:54 RBC 4.15 10^6/uL (3.85-5.65) 03/22/24 00:54 Hgb 10.30 g/dL (11.27-16.99) L 03/22/24 00:54 Hct 32.7 % (36-47) L 03/22/24 00:54 MCV 78.8 fl (85-98) L 03/22/24 00:54 MCH 24.8 pg (27-33) L 03/22/24 00:54 MCHC 31.5 g/dL (30-55) 03/22/24 00:54 RDW 14.1 % (12.1-15.1) 03/22/24 00:54 Plt Count 194 10^3/cmm (157-399) 03/22/24 00:54 MPV 10.5 fL (7.4-10.4) H 03/22/24 00:54 Neut % (Auto) 73.5 % 03/21/24 06:08 Lymph % (Auto) 18.0 % 03/21/24 06:08 [place] % (Auto) 6.3 % 03/21/24 06:08 Eos % (Auto) 1.2 % 03/21/24 06:08 Baso % (Auto) 0.3 % 03/21/24 06:08 Neut # (Auto) 8.75 10^3/uL (1.8-7.7) H 03/21/24 06:08 Lymph # (Auto) 2.1 10^3/uL (0.8-4.8) 03/21/24 06:08 [place] # (Auto) 0.8 10^3/uL (0.2-0.9) 03/21/24 06:08 Eos # (Auto) 0.1 10^3/uL (0.0-0.8) 03/21/24 06:08 Baso # (Auto) 0.0 10^3/uL (0.0-0.1) 03/21/24 06:08 Nucleated RBC % (auto) 0 % 03/21/24 06:08 Nucleated RBCs # 0.0 /100WBC 03/21/24 06:08 POC Glucose 60 mg/dL (70-110) L 03/21/24 21:46 Blood Type B Positive 03/21/24 06:08 Rho(D) Type Rh positive 03/21/24 06:08 Antibody Screen Negative 03/21/24 06:08 Vitals Last Vital Signs Temp 98.0 F 03/22/24 04:26 Pulse 77 03/22/24 04:26 Resp 16 03/22/24 04:26 BP 116/66 03/22/24 04:26 Pulse Ox 98 03/22/24 04:26 O2 Del Method Room Air 03/22/24 04:26 Results Labs OB ([facility]): Obstetrics US 08/18/23 Obstetrics US/Biophysical Profile Blood Type B Positive 03/21/24 Antibody Screen Negative 03/21/24 Hct 32.7 % (36-47) L 03/22/24 Hgb 10.30 g/dL (11.27-16.99) L 03/22/24 Rho(D) Type Rh positive 03/21/24 Plt Count 194 10^3/cmm (157-399) 03/22/24 Uric Acid 3.6 mg/dL (2.4-5.7) 10/27/22 Ser , Semi-Qnt 379769.00 mIU/mL 08/06/23 Micro Urine Specimen 09/21/23 Discharge Plan Discharge Patient Disposition: Home Condition: Stable Prescriptions: Continued 28 mg iron- 800 mcg tablet 2 tab PO QPM Discharge Diet: Usual diet Discharge Activity: Limit activity as instructed Patient Instructions: Depression (DC), Opioid Safety (DC), Preeclampsia and Eclampsia After Delivery (GEN), Hemorrhage (DC), OB Discharge Report, OB Food/Drug Interaction Guide, OB Care at Home, Opioid Safety, OB Vaginal Deliveries, Abnormal Bleeding Discharge Attestations [employer] Time Spent in Discharge Care*: less than 30 min Coding Level of Care Code Acute Code for Chg Fwd Diagnoses Vaginal delivery O80
[2024-03-22] MEDS: PRENATAL VIT NO.130/IRON/FOLIC 1 EACH TABLET PO (09:02)
[2024-03-22] MEDS: ibuprofen 800 mg tablet PO ×2 (09:02→15:25)
[2024-03-22] MEDS: docusate sodium 100 mg Capsule PO (09:02)
[2024-03-22 11:00] VITALS: BP 105/64; PULSE 96; TEMP 36.6
[2024-03-22 17:50] VITALS: BP 132/78; PULSE 98; TEMP 36.7
[2024-03-22 20:00] VITALS: BP 122/75; PULSE 93; RESP 16; TEMP 36.8; O2SAT 98
[2024-03-22 20:52] VITALS: BP 122/75; PULSE 93; RESP 16; TEMP 36.8; O2SAT 98
== END 2024-03-22 20:28 | disposition home or self-care (01) | DRG 807 ==
LOC: OPOB 06:08 → OBGYN 06:08
PROVIDERS: Admitting Provider Family Medicine; Visit Provider Family Medicine
DX: O48.0 Post-term pregnancy (principal); Z37.0 Single live birth; Z3A.40 40 weeks gestation of pregnancy; O69.81X0 Labor and delivery complicated by cord around neck, without compression, not applicable or unspecified; O70.1 Second degree perineal laceration during delivery
CPT/HCPCS: 36415; 36416; 59025; 59409; 82962; 85025; 85027; 86850; 86900; 96374; 96376; 99211; J2371; J2590; J3010; J7120; J7121

== ENCOUNTER 2025-01-26 10:24 | Outpatient (CLI) | payer MEDICARE, MEDICAID, SELFPAY ==
--- NOTE | 2025-01-26 10:40 | US_ITS ---
WS: [id number] ULTRASOUND BREAST LEFT TECHNIQUE: Ultrasound left breast focused area of concern. CLINICAL INFORMATION: [facility]MP COMPARISON: None. FINDINGS: Ultrasound LEFT breast area of concern 10 o'clock position patient directed 6 cm from the nipple and axillary tail. Normal underlying dense parenchymal tissue. Incidental benign-appearing lymph node along the axillary tail at the 1 o'clock position measuring 9 mm. No suspicious findings. No cystic or solid lesions to target for biopsy. US/US breast LT limited* [id number] IMPRESSION: No suspicious findings
== END 2025-01-26 10:25 | disposition home or self-care (01) ==
LOC: RAD 10:28
PROVIDERS: Visit Provider Family Medicine
DX: N63.21 Unspecified lump in the left breast, upper outer quadrant (principal)
CPT/HCPCS: 76642